=== PATIENT | female | born 1965 | race Caucasian/White ===

== ENCOUNTER 2022-10-04 09:40 | Outpatient (CLI) | payer BC, SELFPAY ==
--- NOTE | ~2022-10-04 | US_ITS ---
US thyroid INDICATION: Enlarged thyroid gland TECHNIQUE: Real-time sonographic images of the thyroid gland were obtained. COMPARISON: No prior studies for comparison. FINDINGS: The right thyroid lobe measures 4.5 x 2.2 x 3.2 cm. The left thyroid lobe measures 4.2 x 2 .7 x 2.1 cm. Thyroid echotexture is heterogeneous. There are multiple bilateral thyroid nodules. Ther e is increased vascularity in both lobes. Largest discrete mass in the right thyroid lobe is solid, i soechoic, wider than tall, smoothly marginated without significant echogenic foci measuring 2.5 x 2.1 x 1.7 cm, TR 3. Largest mass in the left lobe measures 2.1 x 1.8 x 1.4 cm and is slightly taller denise n wide, solid, hypoechoic, smoothly marginated without echogenic foci, TR 5. IMPRESSION: 1. Enlarged thyroid gland containing multiple bilateral masses. Bilateral dominant mass is described above both the sonographic criteria for biopsy. Ultrasound-guided bilateral fine-needle aspiration b iopsy recommended. Reviewed, dictated and finalized at location [] IMPRESSION: 1. Enlarged thyroid gland containing multiple bilateral masses. Bilateral steve nant mass is described above both the sonographic criteria for biopsy. Ultrasou nd-guided bilateral fine-needle aspiration biopsy recommended.
== END 2022-10-04 09:41 | disposition home or self-care (01) ==
PROVIDERS: PCP Family Medicine; Visit Provider Obstetrics & Gynecology
DX: E04.9 Nontoxic goiter, unspecified (principal)
CPT/HCPCS: 76536

== ENCOUNTER 2022-11-24 12:34 | Outpatient (CLI) | payer BC, SELFPAY ==
--- NOTE | ~2022-11-24 | US_ITS ---
EXAMINATION: 1. US FNA w image guidance 2. US FNA additional DATE: 11/24/2022 14:05 INDICATION: Nontoxic multinodular goiter. TECHNIQUE: The procedure and its benefits and risks were discussed with the patient. Risks specifically discusse d included bleeding. The patient verbalized understanding of the risks and agreed to proceed. The nec k was prepped and draped in the usual sterile manner. 1% lidocaine was used for local anesthesia. 6 passes were made with a 25G needle into the lesion in right thyroid lobe under ultrasound guidance. 6 passes were made with a 25-gauge needle into the lesion in left thyroid lobe under ultrasound nicholas nce. There were no immediate complications. FINDINGS: Grayscale ultrasound images demonstrate needles advanced into a 3.1 cm nodule in right thyroid lobe f or biopsy. Ultrasound images demonstrate needles advanced into a 2.0 cm nodule in left thyroid lobe. IMPRESSION: 1. Ultrasound-guided fine needle aspiration of a right thyroid nodule. 2. Ultrasound-guided fine-needle aspiration of a left thyroid nodule. Reviewed, dictated and finalized at location A. IMPRESSION: 1. Ultrasound-guided fine needle aspiration of a right thyroid nodule. 2. Ultrasound-guided fine-needle aspiration of a left thyroid nodule.
== END 2022-11-24 12:35 | disposition home or self-care (01) ==
PROVIDERS: PCP Family Medicine; Visit Provider Otolaryngology
DX: E04.2 Nontoxic multinodular goiter (principal)
CPT/HCPCS: 10005; 10006; 88173; 88305

== ENCOUNTER 2023-05-13 00:41 | Day surgery (SDC) | payer BC, SELFPAY ==
[2023-04-15 12:04] VITALS: BMI 25.0
--- NOTE | 2023-05-11 09:21 | SUR.PREOP ---
Patient called regarding upcoming procedure. Reviewed preop instructions, appointment times, and procedure prep.
[2023-05-13 06:20] VITALS: BP 121/77; PULSE 78; RESP 18; TEMP 36.4; O2SAT 100; BMI 25.7
[2023-05-13] MEDS: LACTATED RINGERS 1,000 ML 150 ML IV CONT (10:00)
--- NOTE | 2023-05-13 10:00 | PM.HPGS ---
History of Present Illness History of Present Illness Consent: Risks, benefits, and alternatives have been discussed and questions answered. Patient agrees to proceed with procedure. Chief complaint: neoplasm screening Narrative: Becka West is a 57 year old female here for screening colonoscopy, last one about 9 years ago Review of Systems Constitutional: Constitutional: Denies headache(s) and Denies weakness Eyes: Eyes: Denies blurry vision ENT: Reports Normal hearing present, Denies headache(s) and Denies neck pain Cardiovascular: Cardiovascular: Denies chest pain and Denies dyspnea Respiratory: Respiratory: Denies dyspnea Gastrointestinal: Gastrointestinal: Reports no additional gastrointestinal complaints Genitourinary: Genitourinary: Denies dysuria Musculoskeletal: Musculoskeletal: Denies neck pain Integumentary/Breasts: Skin/Breast: Denies dry skin Neurologic: Reports Normal hearing present, Denies headache(s) and Denies weakness Psychiatric: Psychiatric: Denies anxiety Endocrine: Endocrine: Denies change in body appearance Hematologic/Lymphatic: Hematologic/Lymphatic: Denies easy bleeding Allergic/Immunologic: Allergic/Immunologic: Denies urticaria PMFSH Past Medical History Medical History (Updated 05/13/23 @ 10:01 by Wilfredo Lott MD) Anemia Colon cancer screening Multiple thyroid nodules Family History Family History Mother Breast cancer Diabetes mellitus Hypertension Father Cancer Sibling Hypertension Social History Social History Social History: Caffeine-soda Smoking status: Never smoker Alcohol intake: never Substance use: never Substance use type: does not use Lack of Transportation: No Lack of Food: Never True Current Housing: I Have Housing Concerned About Future Housing: No Difficulty Paying Gas/Electric Bills: No Difficulty Paying for Meds: No Currently Unemployed: No Education: Bachelor's Degree Difficulty w/ Childcare or Family Care: No Living arrangements: alone Occupation/Education: occupation Gender identity (if verbalized by the patient): Female Spiritual care concerns: No Meds Home Medications and Allergies Home Medications Medication Instructions Recorded Confirmed Type rosuvastatin 10 mg tablet 10 mg PO DAILY 10/26/22 04/15/23 History Allergies Allergy/AdvReac Type Severity Reaction Status Date / Time Sulfa (Sulfonamide Allergy Mild Itching Verified 04/15/23 11:54 Antibiotics) sulfamethoxazole Allergy Mild Itching Verified 04/15/23 11:54 [From Bactrim] trimethoprim [From Bactrim] Allergy Mild Itching Verified 04/15/23 11:54 Vital Signs Vital Signs - 24 hr 05/13/23 06:20 Temperature 97.5 F L Pulse Rate 78 Respiratory Rate 18 Blood Pressure 121/77 Pulse Oximetry 100 Oxygen Delivery Room Air Exam Const: General: comfortable and no acute distress HENMT: Face/Nose/Sinus: Normal nares present Eyes: General: appearance normal, both eyes and all related structures Neck: Neck: no JVD Resp: Auscultation: clear to auscultation bilaterally Cardio: Rate: regular rate Rhythm: regular rhythm GI: Inspection: non-distended GI Palp: Yes Soft to palpation Skin: General skin exam: normal color Neuro: General: gait normal Speech: normal speech Extrem: General: normal to inspection Psych: Mental Status: mental status grossly normal Assessment and Plan Assessment and plan (1) Colon cancer screening: Code(s): Z12.11 - Encounter for screening for malignant neoplasm of colon Status: Acute Assessment and Plan: colonoscopy
--- NOTE | 2023-05-13 10:02 | P.PNAN_ITS ---
Anes - Initial Pre Proc Eval Procedure: Operation Date: 05/13/23 10:30 Proposed Procedures p Screening Colonoscopy - Wilfredo Lott MD Date/Time: 05/13/23 10:02 Surgeon: Wilfredo Lott MD Pre Op Diagnosis: neoplasm screening Patient Data Age: 57 Gender: F Height: 1.63 m Weight: 68 kg Last Vital Signs Temp 97.5 F L 05/13/23 06:20 Pulse 78 05/13/23 06:20 Resp 18 05/13/23 06:20 BP 121/77 05/13/23 06:20 Pulse Ox 100 05/13/23 06:20 O2 Del Method Room Air 05/13/23 06:20 Allergies Allergy/AdvReac Type Severity Reaction Status Date / Time Sulfa (Sulfonamide Allergy Mild Itching Verified 04/15/23 11:54 Antibiotics) sulfamethoxazole Allergy Mild Itching Verified 04/15/23 11:54 [From Bactrim] trimethoprim [From Bactrim] Allergy Mild Itching Verified 04/15/23 11:54 Home Medications Medication Instructions Recorded Confirmed Type rosuvastatin 10 mg tablet 10 mg PO DAILY 10/26/22 04/15/23 History Patient hx anesthesia problems: none Family hx anesthesia problems: none Results Review: All pre-operative results and documents have been reviewed as part of the pre-o perative evaluation. [facility] Past Medical History Medical History (Updated 05/13/23 @ 10:01 by Wilfredo Lott MD) Anemia Colon cancer screening Multiple thyroid nodules Family History Family History Mother Breast cancer Diabetes mellitus Hypertension Father Cancer Sibling Hypertension Social History Social History Social History: Caffeine-soda Smoking status: Never smoker Alcohol intake: never Substance use: never Substance use type: does not use Lack of Transportation: No Lack of Food: Never True Current Housing: I Have Housing Concerned About Future Housing: No Difficulty Paying Gas/Electric Bills: No Difficulty Paying for Meds: No Currently Unemployed: No Education: Bachelor's Degree Difficulty w/ Childcare or Family Care: No Living arrangements: alone Occupation/Education: occupation Gender identity (if verbalized by the patient): Female Spiritual care concerns: No Anes - Eval Final PreProcedure Day of Procedure 05/13/23 10:02 Patient weight: normal Heart: regular rate and rhythm Lungs: clear to auscultation Airway: Mallampati scale class II Neurological: alert and oriented Last oral intake: >/= 8 hours ASA classification: II Emergent: no Anesthetic plan: proceed Anesthesia type and monitoring: general GIVS and standard monitoring Results Review: All pre-operative results and documents have been reviewed as part of the pre- operative evaluation. Informed Consent: The patient's anesthetic plan and its attendant risks and benefits were discussed with the patient/family/POA. Questions were solicited and answers provided to the satisfaction of the patient/family/POA.
[2023-05-13 10:28] VITALS: BP 94/68; PULSE 80; RESP 15; O2SAT 98
[2023-05-13 10:38] VITALS: BP 95/65; PULSE 73; RESP 15; O2SAT 99
[2023-05-13 10:48] VITALS: BP 95/74; PULSE 68; RESP 20; O2SAT 99
--- NOTE | 2023-05-13 11:00 | SUR.PHASEII ---
Patient's blood pressures running systolic in the 90's. Patient received a Liter of Lactated Ringers. Patient states her blood pressure normally runs systolic in the high 80's to 90's . Dr. Walter notified. He is okay for discharge at this time.
== END 2023-05-13 11:04 | disposition home or self-care (01) ==
PROVIDERS: PCP Emergency Medicine; Visit Provider Internal Medicine Gastroenterology
PROC: 0DJD8ZZ Inspection of Lower Intestinal Tract, Via Natural or Artificial Opening Endoscopic (ICD-10-PCS; CPT 45378; principal; 2023-05-13 10:30)
DX: Z12.11 Encounter for screening for malignant neoplasm of colon (principal); D12.2 Benign neoplasm of ascending colon; K64.8 Other hemorrhoids
CPT/HCPCS: 45385; 88305; J2704; J7120

== ENCOUNTER 2023-09-28 15:43 | Outpatient (CLI) | payer BC, SELFPAY ==
--- NOTE | ~2023-09-28 | MM_ITS ---
EXAMINATION: MM screening ning BI w robin HISTORY: Screening TECHNIQUE: Craniocaudal and mediolateral oblique 3-D tomosynthesis images were obtained and synthetic 2-D images were generated. CAD analysis was submitted and interpreted. COMPARISON: No prior mammogram is available for comparison at this institution. BREAST PARENCHYMAL COMPOSITION: Not dense: There are scattered areas of fibroglandular density. FINDINGS: There is no evidence of suspicious mass, calcification, or architectural distortion to sugg est malignancy in either breast. There has been no suspicious interval change. IMPRESSION: 1. No mammographic evidence of malignancy. 2. Recommend routine screening mammography in one year. BI-RADS Category 1: Negative Reviewed, dictated and finalized at location B.
== END 2023-09-28 15:44 ==
PROVIDERS: PCP Obstetrics & Gynecology; Visit Provider Obstetrics & Gynecology
DX: Z12.31 Encounter for screening mammogram for malignant neoplasm of breast (principal)
CPT/HCPCS: 77063; 77067

== ENCOUNTER 2024-10-03 15:18 | Outpatient (CLI) | payer BC, SELFPAY ==
--- NOTE | ~2024-10-03 | MM_ITS ---
EXAMINATION: MM screening ning BI w robin HISTORY: Screening TECHNIQUE: Craniocaudal and mediolateral oblique 3-D tomosynthesis images were obtained and synthetic 2-D images were generated. CAD analysis was submitted and interpreted. COMPARISON: 09/28/2023 BREAST PARENCHYMAL COMPOSITION: Not dense: There are scattered areas of fibroglandular density. FINDINGS: There is no evidence of suspicious mass, calcification, or architectural distortion to sugg est malignancy in either breast. There has been no suspicious interval change. IMPRESSION: 1. No mammographic evidence of malignancy. 2. Recommend routine screening mammography in one year. BI-RADS Category 1: Negative Reviewed, dictated and finalized at location A.
== END 2024-10-03 15:19 | disposition home or self-care (01) ==
PROVIDERS: PCP Obstetrics & Gynecology; Visit Provider Obstetrics & Gynecology
DX: Z12.31 Encounter for screening mammogram for malignant neoplasm of breast (principal)
CPT/HCPCS: 77063; 77067

== ENCOUNTER 2025-04-03 15:39 | Outpatient (CLI) | payer BC, SELFPAY ==
--- NOTE | ~2025-04-03 | US_ITS ---
EXAMINATION: US thyroid DATE: 04/03/2025 16:36 INDICATION: Nodule TECHNIQUE: Multiple ultrasound images of the thyroid were obtained. COMPARISON: October 04, 2022 FINDINGS: The right thyroid lobe measures 5.3 x 2.6 x 3.3 cm. The left thyroid lobe measures 5.3 x 2.4 x 2.3 cm. Multiple nodules are noted in the right lobe with the largest measuring 3.5 x 2.0 x 2.5 cm compared with 2.5 x 2.1 x 1.7 cm and TR 4 characteristics. Multiple nodules are noted in the left lobe with the largest measuring 2.1 x 1.7 x 1.7 cm, compared to 2.1 x 1.8 x 1.4 cm on the previous exam with TR 5 sonographic features. IMPRESSION: Bilateral thyroid nodules concerning for increased growth of the largest right-sided 3.5 cm nodule and more suspicious sonographic features of the left-sided 2.1 cm nodule. Both nodules should undergo FNA if not already performed. Reviewed, dictated and finalized at location A. FACTURING CLERK IMPRESSION: Bilateral thyroid nodules concerning for increased growth of the l argest right-sided 3.5 cm nodule and more suspicious sonographic features of th e left-sided 2.1 cm nodule. Both nodules should undergo FNA if not already perf ormed.
--- OUTSIDE RECORDS SUMMARY | 2025-04-03 18:04 | XMS_ITS | Clinical Summary ---
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
--- OUTSIDE RECORDS SUMMARY | 2025-04-03 18:04 | XMS_ITS | Continuity of Care Document ---
[facility] Organization [facility] Address [address] [place] [address] Assessment No assessment recorded. Plan of Treatment Reminders Order Date Submit Date Provider Last Modified By Organization Details Last Modified Time Details Appointments ANNUAL 30 2025 10:00A M NHI Chen Not available Not available Not available Lab lipid panel, serum 2024 025 EFREN Yates, [address], [place], [address], 02/27/2025 12:19:56 CBC w/ auto diff 2024 025 EFREN Yates, [address], [place], [address], 02/27/2025 12:19:57 CMP, serum or plasma 2024 025 EFREN Yates, [address], [place], [address], 02/27/2025 12:19:56 HbA1c (hemoglo bin A1c), blood 2024 025 EFREN Yates, [address], [place], [address], 02/27/2025 12:19:57 TSH, ultra-se nsitive, serum 2024 025 EFREN Yates, [address], [place], [address], 02/27/2025 12:19:56 Referral None recorded . Procedures None recorded . Surgeries None recorded . Imaging US, thyroid 2024 025 [facility] (Mammography) , [address], [place], [address], 04/01/2025 15:12:34 Medication Orders None recorded . Patient TargetsNo targets recorded. Patient Instructions Encounter Date Encounter Id Patient Instructions Last Modified By Organization Details Last Modified Time 02/26/2025 [id number] A healthy lifestyle: care instructions jreu Not available 02/26/2025 11:16:36 Reason for Referral None Reported. Results Created Date Observation Date Name Description Value Unit Range Abnormal Flag Note LastModifiedBy Organization Detail LastModifiedTime 02/27/2002/27/2025 LIPID PANEL cholesterol, total 183 mg/dL 100-19 9 Not Available [facility] ([facility]) [address] [place], [address], 02/27/2025 12:19:55 02/27/2002/27/2025 LIPID PANEL triglyceride s 103 mg/dL 0-149 Not Available [facility] ([facility]) [address] [facility], [place], [address], 02/27/2025 12:19:55 02/27/2002/27/2025 LIPID PANEL HDL cholesterol 52 mg/dL >39 Not Available [facility] ([facility]) [address] [facility], [place], [address], 02/27/2025 12:19:55 02/27/2002/27/2025 LIPID PANEL VLDL cholesterol uzma 19 mg/dL 5-40 Not Available [facility] ([facility]) [address] [facility], [place], [address], 02/27/2025 12:19:55 02/27/2002/27/2025 LIPID PANEL LDL chol calc (nih) 112 mg/dL 0-99 above high normal Not Available [facility] ([facility]) [address] [facility], [place], [address], 02/27/2025 12:19:55 02/27/2002/27/2025 CMP14 +EGFR glucose 80 mg/dL 70-99 Not Available [facility] ([facility]) [address] [facility], [place], [address], 02/27/2025 12:19:56 02/27/2002/27/2025 CMP14 +EGFR BUN 14 mg/dL 8-27 Not Available [facility] ([facility]) [address] [facility], [place], [address], 02/27/2025 12:19:56 02/27/2002/27/2025 CMP14 +EGFR creatinine 0.90 mg/dL 0.57-1 .00 Not Available [facility] ([facility]) [address] [facility], [place], [address], 02/27/2025 12:19:56 02/27/2002/27/2025 CMP14 +EGFR eGFR 73 mL/mi n/1.7 3 >59 Not Available [facility] ([facility]) [address] [facility], [place], [address], 02/27/2025 12:19:56 02/27/2002/27/2025 CMP14 +EGFR BUN/creatini ne ratio 16 12-28 Not Available [facility] ([facility]) [address] [facility], [place], [address], 02/27/2025 12:19:56 02/27/2002/27/2025 CMP14 +EGFR sodium 142 mmol/ L 134-14 4 Not Available [facility] ([facility]) [address] [facility], [place], [address], 02/27/2025 12:19:56 02/27/2002/27/2025 CMP14 +EGFR potassium 5.2 mmol/ L 3.5-5. 2 Not Available [facility] ([facility]) [address] [place], [address], 02/27/2025 12:19:56 02/27/2002/27/2025 CMP14 +EGFR chloride 105 mmol/ L 96-106 Not Available [facility] ([facility]) [address] [place], [address], 02/27/2025 12:19:56 02/27/2002/27/2025 CMP14 +EGFR carbon dioxide, total 21 mmol/ L 20-29 Not Available [facility] ([facility]) [address] [place], [address], 02/27/2025 12:19:56 02/27/2002/27/2025 CMP14 +EGFR calcium 9.8 mg/dL 8.7-10 .3 Not Available [facility] ([facility]) [address] [place], [address], 02/27/2025 12:19:56 02/27/2002/27/2025 CMP14 +EGFR protein, total 6.6 g/dL 6.0-8. 5 Not Available [facility] ([facility]) [address] [place], [address], 02/27/2025 12:19:56 02/27/2002/27/2025 CMP14 +EGFR albumin 4.3 g/dL 3.8-4. 9 Not Available [facility] ([facility]) [address] [place], [address], 02/27/2025 12:19:56 02/27/2002/27/2025 CMP14 +EGFR globulin, total 2.3 g/dL 1.5-4. 5 Not Available [facility] ([facility]) [address] [place], [address], 02/27/2025 12:19:56 02/27/20 25 02/27/2025 CMP14 +EGFR bilirubin, total 0.4 mg/dL 0.0-1. 2 Not Available [facility] ([facility]) [address] [place], [address], 02/27/2025 12:19:56 02/27/2002/27/2025 CMP14 +EGFR alkaline phosphatase 84 IU/L 49-135 Not Available [facility] ([facility]) [address] [place], [address], 02/27/2025 12:19:56 02/27/2002/27/2025 CMP14 +EGFR AST (SGOT) 22 IU/L 0-40 Not Available [facility] ([facility]) [address] [place], [address], 02/27/2025 12:19:56 02/27/2002/27/2025 CMP14 +EGFR ALT (SGPT) 24 IU/L 0-32 Not Available [facility] ([facility]) [address] [place], [address], 02/27/2025 12:19:56 02/27/2002/27/2025 TSH RFX ON ABNOR MAL TO FREE T4 TSH 1.560 uIU/m L 0.450- 4.500 Not Available [facility] ([facility]) [address] [place], [address], 02/27/2025 12:19:56 02/27/2002/27/2025 HEMOG LOBIN A1C hemoglobin A1C 5.7 % 4.8-5. 6 above high normal Predi abete s: 5.7 - 6.4 Diabe rula: >6.4 Glyce linda contr ol for adult s with diabe rula: <7.0 Not Available [facility] ([facility]) [address] [place], [address], 02/27/2025 12:19:57 02/27/20 25 02/27/2025 CBC WITH DIFFE RENTI AL/PL ATELE T WBC 4.9 x10e3 /uL 3.4-10 .8 Not Available [facility] ([facility]) [address] [facility], [place], [address], 02/27/2025 12:19:57 02/27/20 25 02/27/2025 CBC WITH DIFFE RENTI AL/PL ATELE T RBC 4.73 x10e6 /uL 3.77-5 .28 Not Available [facility] ([facility]) [address] [facility], [place], [address], 02/27/2025 12:19:57 02/27/2002/27/2025 CBC WITH DIFFE RENTI AL/PL ATELE T hemoglobin 13.3 g/dL 11.1-1 5.9 Not Available [facility] ([facility]) [address] [facility], [place], [address], 02/27/2025 12:19:57 02/27/2002/27/2025 CBC WITH DIFFE RENTI AL/PL ATELE T hematocrit 41.6 % 34.0-4 6.6 Not Available [facility] ([facility]) [address] [place], [address], 02/27/2025 12:19:57 02/27/2002/27/2025 CBC WITH DIFFE RENTI AL/PL ATELE T MCV 88 fL 79-97 Not Available [facility] ([facility]) [address] [place], [address], 02/27/2025 12:19:57 02/27/20 25 02/27/2025 CBC WITH DIFFE RENTI AL/PL ATELE T MCH 28.1 pg 26.6-3 3.0 Not Available [facility] ([facility]) [address] [place], [address], 02/27/2025 12:19:57 02/27/20 25 02/27/2025 CBC WITH DIFFE RENTI AL/PL ATELE T MCHC 32.0 g/dL 31.5-3 5.7 Not Available [facility] ([facility]) [address] [facility], [place], [address], 02/27/2025 12:19:57 02/27/2002/27/2025 CBC WITH DIFFE RENTI AL/PL ATELE T RDW 13.2 % 11.7-1 5.4 Not Available [facility] ([facility]) [address] [facility], [place], [address], 02/27/2025 12:19:57 02/27/2002/27/2025 CBC WITH DIFFE RENTI AL/PL ATELE T platelets 298 x10e3 /uL 150-45 0 Not Available [facility] ([facility]) [address] [facility], [place], [address], 02/27/2025 12:19:57 02/27/2002/27/2025 CBC WITH DIFFE RENTI AL/PL ATELE T neutrophils 55 % notest ab. Not Available [facility] ([facility]) [address] [facility], [place], [address], 02/27/2025 12:19:57 02/27/2002/27/2025 CBC WITH DIFFE RENTI AL/PL ATELE T lymphs 35 % notest ab. Not Available [facility] ([facility]) [address] [facility], [place], [address], 02/27/2025 12:19:57 02/27/2002/27/2025 CBC WITH DIFFE RENTI AL/PL ATELE T monocytes 8 % notest ab. Not Available [facility] ([facility]) [address] [facility], [place], [address], 02/27/2025 12:19:57 02/27/2012 0302/27/2025 CBC WITH DIFFE RENTI AL/PL ATELE T eos 1 % notest ab. Not Available [facility] ([facility]) [address] [place], [address], 02/27/2025 12:19:57 02/27/20 25 02/27/2025 CBC WITH DIFFE RENTI AL/PL ATELE T basos 1 % notest ab. Not Available [facility] ([facility]) [address] [place], [address], 02/27/2025 12:19:57 02/27/2002/27/2025 CBC WITH DIFFE RENTI AL/PL ATELE T neutrophils (absolute) 2.7 x10e3 /uL 1.4-7. 0 Not Available [facility] ([facility]) [address] [place], [address], 02/27/2025 12:19:57 02/27/2002/27/2025 CBC WITH DIFFE RENTI AL/PL ATELE T lymphs (absolute) 1.7 x10e3 /uL 0.7-3. 1 Not Available [facility] ([facility]) [address] [place], [address], 02/27/2025 12:19:57 02/27/20 25 02/27/2025 CBC WITH DIFFE RENTI AL/PL ATELE T monocytes(ab solute) 0.4 x10e3 /uL 0.1-0. 9 Not Available [facility] ([facility]) [address] [place], [address], 02/27/2025 12:19:57 02/27/2002/27/2025 CBC WITH DIFFE RENTI AL/PL ATELE T eos (absolute) 0.1 x10e3 /uL 0.0-0. 4 Not Available [facility] ([facility]) [address] [place], [address], 02/27/2025 12:19:57 02/27/20 25 02/27/2025 CBC WITH DIFFE RENTI AL/PL ATELE T baso (absolute) 0.0 x10e3 /uL 0.0-0. 2 Not Available [facility] ([facility]) [address] [facility], [place], [address], 02/27/2025 12:19:57 02/27/20 25 02/27/2025 CBC WITH DIFFE RENTI AL/PL ATELE T immature granulocytes 0 % notest ab. Not Available [facility] ([facility]) [address] [facility], [place], [address], 02/27/2025 12:19:57 02/27/2002/27/2025 CBC WITH DIFFE RENTI AL/PL ATELE T immature grans (abs) 0.0 x10e3 /uL 0.0-0. 1 Not Available [facility] ([facility]) [address] [facility], [place], [address], 02/27/2025 12:19:57 02/28/2010/03/2024 MAMMO , scree kim, bilat eral No observ ation record ed. [facility] [address], [place], [address], 02/27/2025 14:26:15 Result Notes None recorded. Problems Name Problem SNOMED Code Status Onset Date Resolution Date Notes Provider Name and Address Organization Details Recorded Time Hyperlip idemia 26291586 Completed 201105/25/2017 Location : None;Sev erity: Moderate ;Progres s: Stable;A dded By: Megan Reynolds; Add to Current Problems : YES Leighann varela, [place] - [facility] 8 11:32:52 Generali zed anxiety disorder 93533677 Active 2011 Shekhar Anand MD Attn: Accounting ,[address] [facility], [place], [address] , [facility] 3 09:53:09 Female urinary stress incontin ence 36934100 Completed 201203/15/2013 Location : None;Sev erity: Moderate ;Progres s: Stable;A dded By: Holly Heath i;Debora dd to Current Problems : NO Not Available [facility] 7 09:37:58 Long-ter m drug therapy Active 2013 Shekhar Anand MD Attn: Accounting ,[address] [place], [place], [address] [place] [address] , [facility] 3 09:53:14 Mixed hyperlip idemia 550729394 Active 2013 Shekhar Anand MD Attn: Accounting ,[address] [place], [place], [address] [place] [address] , [facility] 3 09:53:20 Atopic dermatit is 24279270 Active 2013 Shekhar Anand MD Attn: Accounting ,[address] [place], [place], [address] [place] [address] , [facility] 3 09:53:06 Ganglion of joint 15213013 Completed 201312/06/2013 Location : None;Sev erity: Moderate ;Progres s: Stable;A dded By: Lulu Colon;Ad d to Current Problems : NO Shekhar Anand MD Attn: Accounting ,[address] [place], [place], [address] [place] [address] , [facility] 2 16:30:23 Allergic rhinitis caused by pollen 16008281 Completed 201403/07/2015 Location : None;Sev erity: Moderate ;Progres s: Stable;A dded By: Alma Dubose;Add to Current Problems : NO Shekhar Anand MD Attn: Accounting ,[address] [place], [place], [address] [place] [address] , [facility] 2 16:30:32 Contact dermatit is due to plants, except food Completed 201512/24/2021 Location : None;Sev erity: Moderate ;Progres s: Stable;A dded By: Leighann Tarango;Add to Current Problems : YES Shekhar Anand MD Attn: Accounting ,[address] [place], [address] , [facility] 2 16:29:34 Menopaus e Completed 201601/27/2023 estimate for start of menopaus e Shekhar Anand MD Attn: Accounting ,[address] [place], [address] , [facility] 3 09:53:31 Prediabe rula 879403446 Active 2018 Shekhar Anand MD Attn: Accounting ,[address] [place], [address] , [facility] 2 16:29:45 Body mass index 25-29 - overweig ht 203224008 Active 2021 Shekhar Anand MD Attn: Accounting ,[address] [place], [address] , [facility] 2 16:29:15 Fatigue 50269933 Completed 202101/27/2023 Shekhar Anand MD Attn: Accounting ,[address] [place], [address] , [facility] 3 09:53:23 Multinod ular goiter 119721014 Active 2022 Shekhar Anand MD Attn: Accounting ,[address] [place], [address] , [facility] 3 12:00:10 Problem Notes None recorded. Procedures Surgical History Date Name Laterality Status Provider Name and Address Organization Details Recorded Time 5 lumpectomy of left breast completed Ruth Turner MA [facility] 06/13/2018 10:59:54 4 ligation of fallopian tube completed Ruth Turner MA [facility] 06/13/2018 10:59:06 Imaging Results None recorded. Procedure Notes None recorded. Medical Equipment None Reported. Allergies Allergen ID Allergen Name Allergen Category Reaction Reaction Severity Criticality Documentation Date Start Date Code Code System Note Provider Name and Address Organization Details Recorded Time 315485 sulfameth oxazole / trimethop rim medicatio n itching Not available Not available 02/25/20252014 58928 RxNorm Not Available [facility] - External Data Service - prod 5 17:08:55 21940 Substance with sulfonami de structure and antibacte rial mechanism of action (substanc e) medicatio n hives moderate Not available 04/21/20162011 17950 8003 SNOMED React ion: hives , rash; Sever ity: Moder ate; Comme nt: Aller gy Type: Adver se React ion; Not Available [facility] 7 03:48:51 Medications Name Sig Start Date Stop Date Status Note LastModified by Organization Details LastModified Time cyclobenzap rine 10 mg tablet Take 1 tablet as needed by oral route at bedtime. 05/25 completed Not Available Not Available Not Available cefuroxime axetil 250 mg tablet 05/25 completed Not Available Not Available Not Available ibuprofen 800 mg tablet 05/25 completed Not Available Not Available Not Available prednisone 20 mg tablet 3 po q day for 3 days then 2 po q day for 3 days then 1 po q day for 4 days 05/25 completed Not Available Not Available Not Available simvastatin 10 mg tablet TAKE 1 TABLET BY MOUTH EVERY NIGHT AT BEDTIME active Not Available Not Available No t Available promethazin e 6.25 mg-codeine 10 mg/5 mL syrup 2 raulito PO Q 6hrs prn cough 05/13 completed RxNor m: 76249 6;All ow Subst ituti on: True Not Available Not Available Not Available Flonase 50 mcg/actuati on nasal spray,suspe nsion 2 spray(s) in each nostril daily 05/10 completed RxNor m: 73031 3;All ow Subst ituti on: True Not Available Not Available Not Available triamcinolo ne acetonide 0.1 % topical cream use twice a day as needed for less than 2 wks 02/03 completed RxNor m: 44361 14;Al low Subst ituti on: True Not Available Not Available Not Available amoxicillin 500 mg tablet TAKE 1 TABLET BY MOUTH THREE TIMES DAILY 02/26 completed Not Available Not Available Not Available terbinafine HCl 250 mg tablet 07/07 completed Not Available Not Available Not Available triamcinolo ne acetonide 0.025 % topical cream APPLY THIN LAYER TOPICALLY TO THE AFFECTED AREA TWICE DAILY 02/26 completed Not Available Not Available Not Available hydrocodone 7.5 mg-acetamin ophen 325 mg tablet 05/25 completed Not Available Not Available Not Available simvastatin 20 mg tablet TAKE 1 TABLET BY MOUTH DAILY 01/20 completed Not Available Not Available Not Available methylpredn isolone 4 mg tablets in a dose pack FOLLOW PACKAGE DIRECTION S 02/26 completed Not Available Not Available Not Available rosuvastati n 10 mg tablet TAKE 1 TABLET BY MOUTH EVERY DAY active Not Available Not Available No t Available chlorhexidi ne gluconate 0.12 % mouthwash 05/25 completed Not Available Not Available Not Available Virtussin AC 10 mg-100 mg/5 mL oral liquid 05/25 completed Not Available Not Available Not Available Vitals Date Recorded Body height Body mass index (BMI) Body weight Oxygen saturation Heart rate Body temperature Systolic And Diastolic Provider Name and Address Organization Details Last Updated DateTime 5 160.02 cm 26.3 kg/m2 38944.0 7 g 99 % 65 /min 98 [degF] 97/68 mm[Hg] Sharona Lopez [place] [facility] 5 11:08:58 Social History Question Answer Notes LastModified by Organizat ion Details LastModified Time Tobacco Smoking Status Never Smoker Ruth Turner MA [facility], [place] - [facility] 05/25/2017 11:01:14 Do You Have An Advance Directive? No Information not available 12/24/2021 Are You Blind Or Do You Have Difficulty Seeing? No Information not available 12/24/2021 What Is Your Level Of Caffeine Consumption? Moderate Information not available 12/24/2021 Are You Deaf Or Do You Have Serious Difficulty Hearing? No Information not available 12/24/2021 What Type Of Diet Are You Following? REGULAR Information not available 12/24/2021 What Was The Date Of Your Most Recent Tobacco Screening? 02/26/2025 Information not available 02/26/2025 What Is Your Relationship Status? Single Information not available 12/24/2021 Do You Use Your Seat Belt Or Car Seat Routinely? Yes Information not available 12/24/2021 Do You Have Smoke And Carbon Monoxide Detectors In Your Home? Yes Information not available 12/24/2021 Are You Passively Exposed To Smoke? No Information no t available 12/24/2021 Sex: Unknown Functional Status Question Answer Note LastModified by Organizat ion Details LastModified Time Do you or have you ever used any other forms of tobacco or nicotine? No Information not available 07/07/2020 What is your level of alcohol consumption? None Information not available 07/07/2020 Are you currently employed? Yes Information not available 12/24/2021 Are you able to care for yourself independently? Yes Information not available 12/24/2021 What is your exercise level? Occasional Information not available 12/24/2021 Mental Status Question Answer Note LastModified by Organization D etails LastModified Time Do you feel stressed (tense, restless, nervous, or anxious, or unable to sleep at night)? [id number] Information not available 02/26/2025 Family History Relationship Description Onset Age of this Age Resolved Age Notes LastModified by Organization Details LastModified Time Mother Hyperlipidem ia [email or web address] Not available 14:26:06 Father Mesothelioma (malignant, clinical disorder) [email or web address] Not available 14:26:27 Notes:Stomach/Liver Mat GM. Medical History Condition Response High Blood Pressure Y Gynecological History Statement/Question Response Menses Monthly N If Post Menopausal, Age at Menopause 49 Obstetrics History GPAL:G 0 P 0 0 0 0 Immunizations Vaccine Type Date Status Note Provider Nam e and Address Organization Details Recorded Time Influenza, split virus, quadrivalent, preservative 8 completed MIGNON Jordan - [facility] 02/27/2018 09:13:38 Influenza, split virus, quadrivalent, preservative 9 completed Leighann Tarango [place], [place] [facility] 06/19/2019 11:00:21 Influenza, split virus, quadrivalent, preservative 0 completed Kaylenanupama Caicedos [place], [place] [facility] 01/22/2020 14:47:44 SARS-COV-2 (COVID-19) vaccine, UNSPECIFIED 1 completed Ruth Turner [place], [place] [facility] 07/07/2020 11:13:56 SARS-COV-2 (COVID-19) vaccine, UNSPECIFIED 1 completed Ruth Turner [place] [facility] 07/07/2020 11:14:34 COVID-19, mRNA, LNP-S, PF, 30 mcg/0.3 mL dose 1 completed Erika Mahmood [place], [place] [facility] 12/24/2021 16:09:09 Influenza, split virus, quadrivalent, PF 7 completed Not Available [facility] 02/26/2025 10:45:22 Influenza, split virus, quadrivalent, PF 1 completed Not Available [facility] 02/26/2025 10:45:22 COVID-19, mRNA, LNP-S, bivalent, PF, 30 mcg/0.3 mL dose 2 completed Not Available [facility] 02/26/2025 10:45:22 Influenza, split virus, quadrivalent, PF 2 completed Not Available [facility] 02/26/2025 10:45:22 Influenza, MDCK, trivalent, PF 4 completed Not Available [facility] 02/26/2025 10:45:22 COVID-19, mRNA, LNP-S, PF, martinez-sucrose, 30 mcg/0.3 mL 4 completed Not Available [facility] 02/26/2025 10:45:22 zoster recombinant 1 completed Not Available [facility] 02/26/2025 10:45:23 Tdap 2 completed Shekhar Anand MD Attn: Accounting[address] [place], [address], [place] [facility] 12/24/2021 21:29:01 Influenza, split virus, trivalent, preservative 4 completed Not Available [facility] 04/21/2016 06:03:05 Tdap 2 completed Not Available [facility] 04/21/2016 06:03:05 Influenza, split virus, trivalent, PF 5 completed Sharona Lopez [place], [place] [facility] 02/26/2025 12:37:26 Pneumococcal conjugate PCV20, polysaccharide [id number] conjugate, adjuvant, PF 5 completed Sharona Lopez MA null, [place] - [facility] 02/26/2025 12:36:55 Past Encounters Encounter ID Performer Location Encounter Start Date Encounter Closed Date Diagnosis/Indication Diagnosis SNOMED-CT Code Diagnosis ICD10 Code Diagnosis IMO Codes Diagnosis Note [id number] Lita Saravia MD [facility] [address] [place] [address] 02/26/2025 10:43:53 02/26/2025 16:15:05 General examination of patient 644485265 Z00.00 [id number] Discussed healthy lifestyle habits such as diet, exercise and sleep. Generalize d anxiety disorder 76099435 F41.1 -PHQ-9 stable-Enc ouraged the adoption of healthy lifestyle habits, including regular exercise, balanced diet, adequate sleep, and stress management techniques . These lifestyle modificati ons can complement other treatment modalities and promote overall well-being .-Encourag ed connection s with support networks, such as family, friends, or support groups. Social support can provide emotional validation , practical assistance , and a sense of belonging, which are beneficial for individual s with depression . Mixed hyperlipidemia 267 895906 E78.2 Follow a low fat and low cholestero l diet.Reduc e dietary intake of fat to less than 30% of total calories.L imit total cholestero l to less than 200mg per day.Minimi ze use of trans fatty acids.Incr ease intake of fiber, vegetables , fruits and other whole grainsPart icipate in aerobic exercise (at least 30 minutes 4 days a week).Avoi d tobacco products. Prediabetes 734774811 R7 3.03 - Please work on diet of a good spread of veggies, fruits, lean meats, and whole grains.-Av oid foods high in saturated fats and trans fats.-Also avoid cakes, cookies, and other foods high in sugar.-Try to get at least 20-30 minutes of exercise in a couple of times a week. Screening mammography 24 353428 Z12.31 [id number] -states she had MAMMO in 2024--will request records Sampling o f cervix for Papanicolaou smear [id number] Z12.4 [id number] -[facility] request [facility] from [facility] Screening for malignant neoplasm of colon [id number] Z12.11 [id number] 04/15/23-- 4 yr f/u Multinodular goiter 2375 95183 E04.2 518182 -US of thyroid showed multiple masses,Pt had a fine needle biopsy 11/24/22- which was normal.-wi ll repeat with thyroid labs and treat accordingl y Overweight [id number] E66 .3 heart healthy diet and routine exercise discussed and f/u yearly Chronic constipation 236 [id number] K59.09 414871 -Recommend to increase fiber content in diet with more fruits and vegetable. -Drink plenty of water.-Twin e medication as prescribed , if getting worse go to ER.- If no improvemen t in 1-2 weeks, return to clinic for further assessment or follow up with Gastroente rology Requires i nfluenza virus vaccination [id number] Z23 112671 Requires v accination against Streptococcus pneumoniae [id number] Z23 114549 Health Concerns Section Related Observation LastModified by Organization Detai ls LastModified Time None Recorded Concern Status LastModified by Organization Details LastModified Time None Recorded Payers Encounter Date Sequence Insurance Name Policy Number Policy Aaron Covered Member ID Aaron Member ID Guarantor Name 02/26/2025 1 [place] [id number] Becka West [id number] Becka West Notes Date Note Type Note Provider Name and Address Organization Details Recorded Time 02/26/2025 text/html Becka is here today for an annual visit. She has complaints of ongoing constipation. Otherwsie she is doing great. She is not in acute distress. Tonya Heredia, [facility] Attn: Accounting,[address] [place], [address], [place] - [facility] 02/26/2025 11:44:43 OBGyn Episode No OBEpisode recorded.
--- OUTSIDE RECORDS SUMMARY | 2025-04-03 18:04 | XMS_ITS | Clinical Summary ---
Author Organization [facility] Address [address] [place] [address] Phone Care Team Providers Care License Examiner Name Role Phone Leighann Tarango MD Primary Care Provider [phone] Allergies Active Allergy Reactions Criticality Noted Date Comments Sulfamethoxazole-Trimethoprim Itching 2014 Sulfa Antibiotics Itching 04/09/2015 Medications simvastatin (ZOCOR) 10 MG Tablet 02/05/2015 Active Family History Medical History Relation Name Comments Cancer Father mesothelioma Colon Polyps Mother Hypertension Mother Osteoarthritis Mother Colon Cancer Paternal Aunt Relation Name Status Comments Father Mother Alive Paternal Aunt Social History Tobacco Use Types Packs/Day Years Used Date Smoking Tobacco: Never Smokeless Tobacco: Never Alcohol Use Standard Drinks/Week Comments Yes 0 (1 standard drink = 0.6 oz pur e alcohol) Comments Unknown Sex and Gender Information Value Date Recorded Sex Assigned at Not on file Legal Sex Female 10:54 AM LEAD JANITOR Gender Identity Not on file Sexual Orientation Not on file 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 Not on file Not on file Not o n file Last Filed Vital Signs Vital Sign Reading Time Taken Comments Blood Pressure 102/63 04/21/2015 9:42 AM LEAD JANITOR Pulse - - Temperature 36 C (96.8 F) 04/21/2015 9:42 AM LEAD JANITOR Respiratory Rate 16 04/21/2015 9:42 AM LEAD JANITOR Oxygen Saturation 100% 04/21/2015 9:42 AM LEAD JANITOR Inhaled Oxygen Concentration - - Weight 64.9 kg (143 lb) 04/09/2015 1:00 PM LEAD JANITOR Height 162.6 cm (5' 4) 04/09/2015 1:00 PM LEAD JANITOR Body Mass Index 24.55 04/09/2015 1:00 PM LEAD JANITOR Plan of Treatment Health Maintenance Due Date Last Done Comments Hepatitis C Virus (HCV) Screening 1965 TdaP Immunization 1964 Pap Smear 1985 Cervical Cancer Screening (CCS) 1994 HPV/Cotest 1994 Cologuard 2009 Immunochemical Fecal Occult Blood 2009 Pneumococcal Immunization (5 0+ years) (1 of 1 - PCV) 2014 Zoster Immunization (1 of 2) 2014 Influenza Immunization (#1) 2024 SARS-COV-2 Immunization ( - season) 2024 Colonoscopy 04/21/2025 04/21/2015 Colorectal Cancer Screening 04/21/2025 Respiratory Syncytial Virus (RSV) Immunization (Adult) (1 - 1-dose 75+ series) 08/12/2039 Hepatitis B Immunization Aged Out No longer eligible based on patient's age to complete this topic Human Papillomavirus (HPV) Immunization Aged Out No longer eligible b ased on patient's age to complete this topic Meningococcal Immunization (ACWY) Aged Out No longer eligible based on patient's age to complete this topic Rotavirus Immunization Aged Out No lo nger eligible based on patient's age to complete this topic Insurance [employer] WAN Care Teams License Examiner Relationship Specialty Start Date End Date Leighann Tarango MD [address] [address] PCP - General 04/15/15
--- OUTSIDE RECORDS SUMMARY | 2025-04-03 18:05 | XMS_ITS | Clinical Summary ---
Author Organization [facility] Address [address] [place] [address] Care Team Providers Care Leather Skinner Name Role Phone Unavailable Primary Care Provider Unavailabl e Source Comments [facility],non-owned Affiliates and Associated Physician Practices is amultiple site organization consisting of ambulatory clinics and hospital sitesin [place] and [place]. This disclosure is being madepursuant to the Care Everywhere program and may not contain all information available regarding this patient. Last updated 18.HeartFlow Allergies Active Allergy Reactions Criticality Noted Date Comments Sulfamethoxazole W-Trimethoprim Itching 12/18 Medications * Be aware that medications may not be up to date on this document. Alwaysverify current medications with the patient. simvastatin (ZOCOR) 10 MG tablet 02/05/2015 Active TERBINAFINE EX Activ e Immunizations Immunization Administration Dates Next Due INFLUENZA VACCINE, QUADR. (F LUZONE; FLULAVAL; FLUARIX; AFLURIA QUADRIVALENT; 6MO+), 0.5 ML (IIV4) 02/06/2019,01/07/2017 Social History Tobacco Use Types Packs/Day Years Used Date Smoking Tobacco: Never Smokeless Tobacco: Never Comments No Sex and Gender Information Value Date Recorded Sex Assigned at Not on file Legal Sex Female 11:34 AM CDT Gender Identity Not on file Sexual Orientation Not on file Last Filed Vital Signs Vital Sign Reading Time Taken Comments Blood Pressure 102/70 03/23/2018 5:18 PM WELL SERVICE PUMP EQUIPMENT OPERATOR Pulse 78 03/23/2018 5:18 PM WELL SERVICE PUMP EQUIPMENT OPERATOR Temperature 37 C (98.6 F) 03/23/2018 5:18 PM WELL SERVICE PUMP EQUIPMENT OPERATOR Respiratory Rate 15 03/23/2018 5:18 PM WELL SERVICE PUMP EQUIPMENT OPERATOR Oxygen Saturation 98% 03/23/2018 5:18 PM WELL SERVICE PUMP EQUIPMENT OPERATOR Inhaled Oxygen Concentration - - Weight 65.8 kg (145 lb) 03/23/2018 5:18 PM WELL SERVICE PUMP EQUIPMENT OPERATOR Height 162.6 cm (5' 4) 03/23/2018 5:18 PM WELL SERVICE PUMP EQUIPMENT OPERATOR Body Mass Index 24.89 03/23/2018 5:18 PM WELL SERVICE PUMP EQUIPMENT OPERATOR Plan of Treatment Health Maintenance Due Date Last Done Comments COLOGUARD (AGES 45-75) - COLON CA SCREENING 1964 COLON MONITORING 1964 COLONOSCOPY - COLON CA SCREENING 1964 CT COLONOGRAPHY - COLON CA SCREENING 1964 Colorectal Cancer Screening 1964 FIT - COLON CA SCREENING 1964 FLEX SIG - COLON CA SCREENING 1964 MAMMOGRAM 1964 HIV SCREENING 08/12/1979 HEPATITIS C SCREENING 08/07/1982 DTAP/TDAP/TD VACCINES (1 - Tdap) 08/12/1983 PAP SMEAR 1985 PNEUMOCOCCAL VACCINE 50+ (1 of 1 - PCV) 2014 ZOSTER VACCINE (1 of 2) 2014 DEPRESSION SCREENING 04/18/2024 COVID-19 VACCINE (1 - season) 2024 INFLUENZA VACCINE (#1) 2024 9, 02/06/2019, 02/23/2018, Additional history exists Respiratory Syncytial Virus (RSV) Vaccine Pt: or over 60 yrs (1 - 1-dose 75+ series) 08/12/2039 HEPATITIS B VACCINE Aged Out No longe r eligible based on patient's age to complete this topic HIB VACCINE Aged Out No longer eligi ble based on patient's age to complete this topic HPV VACCINE Aged Out No longer eligi ble based on patient's age to complete this topic MENINGOCOCCAL (Group B) VACCINE SHARED DECISION-MAKING Aged Out No longer eligible based on patient's age to complete this topic MENINGOCOCCAL GROUPS A/C/Y/W VACCINE Aged Out No longer eligible based on patient's age to complete this topic Insurance [facility] SELF PAY NO INSURANCE Member Subscriber Plan / Payer (Ef fective for All Dates) Name:Becka West Member ID:Not on file Relation to Subscriber:Not on file Name:BECKA WEST Subscriber ID:Not on file Address: [address] [place] [address] Payer ID:Not on file Group ID:Not on file Type:Self Pay Address: [place], [place]
--- OUTSIDE RECORDS SUMMARY | 2025-04-03 18:05 | XMS_ITS | Patient Health Record ---
Author Organization [facility] Address [address] [place], [place] [id number] Care Team Providers Care Fire Control Mechanic Name Role Phone AIMEE Duque Unavailable [phone] Leighann Tarango Unavailable Unavailable Reason For Referral No Information Social History Social History Additional Details Category Social Info Options Details Migrated Social History Migrated Social History Smoking Status : Never used tobacco , History of tobacco use : Plan Of Treatment No Information Insurance Providers Payer Name Payer Address Payer Phone Subscriber Number Group Number Insured Name Patient Relationship to Insured Coverage Start Date Coverage End Date [employer] ([employer]) [address] [place], [place] [id number] MERLE BRISENO Self - patient is the insured
--- OUTSIDE RECORDS SUMMARY | 2025-04-03 18:05 | XMS_ITS | Clinical Summary ---
Author Organization [facility] Address [address] [place] [id number] Care Team Providers Care Commander Internal Affairs Name Role Phone Leighann Tarango MD Primary Care Provider [phone] Family History Medical History Relation Comments Breast Cancer Mother Relation Status Comments Mother Social History Tobacco Use Types Packs/Day Years Used Date Smoking Tobacco: Never Assessed Comments Unknown Sex and Gender Information Value Date Recorded Sex Assigned at Not on file Legal Sex Female 12:57 PM CDT Gender Identity Not on file Sexual Orientation Not on file Plan of Treatment Health Maintenance Due Date Last Done Comments Cervical Cancer Screening Pap Smear (Age 30 to 64) Every 3 Years 1964 Colorectal Cancer Screening Colonoscopy (10 Years) 1964 Annual Physical 08/12/1967 Hepatitis C 1982 Cervical Cancer Screening Pap with HPV Testing (Age 30 to 64) Every 5 Years 1994 Cervical Cancer Screening with HPV 1994 Pneumococcal Vaccine: 50+ Years (1 of 1 - PCV) 2014 Zoster Vaccines (1 of 2) 2014 Mammogram Screening 06/07/2024 06/07/2022, 06/01/2021, 05/30/2020, Additional history exists COVID-19 Vaccine (2024- season) 2024 03/01/2021, 06/05/2020, 05/08/2020, Additional history exists Influenza Adult (#1) 2025 01/21/2020, 02/16/2019, 02/06/2019, Additional history exists DTaP, Tdap and Td Vaccines (3 - Td or Tdap) 12/25/2031 12/24/2021, 2011 RSV Immunization or 60+ Years (1 - 1-dose 75+ series) 08/12/2039 Hepatitis A Vaccines Aged Out No long er eligible based on patient's age to complete this topic Meningococcal B Vaccine Aged Out No l onger eligible based on patient's age to complete this topic Meningococcal Vaccine Aged Out No evelyn aurelia eligible based on patient's age to complete this topic RSV Immunizations Under 20 Months Aged Out No longer eligible based on patient's age to complete this topic Procedures Procedure Name Priority Date/Time Associated Diagnosis Comments MG SCREENING W NAOMI PILAR DIGI Routine 06/07/2022 1:15 PM MUSHROOM PACKER Encounter for screening mammogram for malignant neoplasm of breast from Last 3 Months or Most Recently Relevant to Health Maintenance Results * MG SCREENING W NAOMI PILAR DIGI (06/07/2022 1:15 PM MUSHROOM PACKER) Anatomical Region Laterality Modality Breast Bilateral Mammography 06/07/2022 3:46 PM MUSHROOM PACKER Narrative 06/07/2022 3:50 PM MUSHROOM PACKER IMAGING STUDIES: MG SCREENING W NAOMI PILAR DIGI DATE: 06/07/2022 12:21 PM HISTORY: Encounter for screening mammogram for malignant neoplasm of breast 56-year-old female for screening study. History of left breast biopsy in 2005 with reported benign pathology. Mother with breast cancer at 75 years old. COMPARISON: Screening mammogram 06/01/2021, 05/30/2020, and 02/12/2019. TECHNIQUE: Bilateral digital screening mammogram with CAD. Standard CC and MLO views. 2-D imaging and 3-D tomography. DISCUSSION: Scattered fibroglandular tissue. Benign calcifications. No mammographically suspicious mass, microcalcification, or architectural distortion. No abnormality marked by CAD. IMPRESSION: 1. No mammographic evidence of malignancy. Recommend annual mammogram. 2. BI-RADS Category 2: Benign. 3. TISSUE TYPE: Category B - There are areas of scattered fibroglandular density. A) A negative report should not delay a biopsy if a dominant or clinically suspicious mass is present. B) Adenosis and dense breasts may obscure an underlying neoplasm. C) Study interpreted with computer aided detection. Ordered By: SHEKHAR BYERS Interpreted By: Jhonny Escalante, 06/07/2022 3:46 PM Shekhar Byers MD MAMMO Final Res ult from Last 3 Months or Most Recently Relevant to Health Maintenance [facility] Care Teams Commander Internal Affairs Relationship Specialty Start Date End Date Leighann Tarango MD PCP - General 12/30/15
--- OUTSIDE RECORDS SUMMARY | 2025-04-03 18:05 | XMS_ITS | Data Portability ---
[facility] Address [address] [place] [address] Assessment Encounter Date Assessment Date Assessment LastModified by Organization Details LastModified Time 02/27/2024 02/27/2024 Pt to follow up in 1 year unless needed sooner. Will follow up on lab work when resulted. Refills given for statin. [email or web address] Not available 02/27/2024 12:46:19 Plan of Treatment Reminders Order Date Submit Date Provider Last Modified By Organization Details Last Modified Time Details Appointments ANNUAL 30 2025 10:00A M NHI Chen Not available Not available Not available Lab lipid panel, serum 2024 025 DRU Yates, [address], [address], [place], [address], 02/27/2025 12:19:56 CBC w/ auto diff 2024 025 DRU Yates, [address], [place], [address], 02/27/2025 12:19:57 CMP, serum or plasma 2024 025 DRU Yates, [address], [place], [address], 02/27/2025 12:19:56 HbA1c (hemog lobin A1c), blood 2024 025 DRU Yates, [address], [place], [address], 02/27/2025 12:19:57 TSH, ultra- sensit jony, serum 2024 025 [facility], [address], [place], [address], 02/27/2025 12:19:56 lipid panel, serum 2023 024 [facility], [address], [place], [address], 03/01/2024 03:09:32 CMP, serum or plasma 2023 024 [facility] GL[facility], [address], [place], [address], 03/01/2024 03:09:33 CBC w/ auto diff 2023 024 [facility] GL[facility], [address], [place], [address], 03/01/2024 03:09:37 HbA1c (hemog lobin A1c), blood [address] [facility], [address], [place], [address], 03/01/2024 03:09:36 TSH, ultra- sensit jony, serum 2023 024 [facility], [address], [place], [address], 03/01/2024 03:09:35 HbA1c (hemog lobin A1c), blood 2022 023 [facility], [address], [place], [address], 02/03/2023 09:22:46 CMP, serum or plasma [address] [facility], [address], [place], [address], 02/03/2023 07:16:[address] [facility], [address], [place], [address], 02/03/2023 07:16:47 lipid panel, serum [address] [facility], [address], [place], [address], 02/03/2023 07:16:46 TSH, ultra- sensit jony, serum [address] [facility], [address], [place], [address], 02/03/2023 09:22:45 vitami n D, 25-hyd lalo, total, serum 2021 022 [facility] GL[facility], [address], [place], [address], 01/07/2022 06:13:01 HbA1c (hemog lobin A1c), blood [address] [facility], [address], [place], [address], 01/07/2022 06:13:00 CMP, serum or plasma 2021 022 [facility] GL[facility], [address], [place], [address], 01/07/2022 06:12:[address] [facility], [address], [place], [address], 01/07/2022 06:13:00 lipid panel, serum 2021 022 [facility], [address], [place], [address], 01/07/2022 06:12:58 TSH, ultra- sensit jony, serum 2021 022 DR[facility], [address], [place], [address], 01/07/2022 06:12:59 lipid panel, serum 2020 021 DRU Not available 07/08/2020 12:57:43 AST/SG OT (aspar singleton aminot ransfe rase), serum or plasma 2020 021 DRU Not available 07/08/2020 14:12:12 BMP, serum or plasma 2020 DRU Not available 07/08/2020 12:57:43 Referral gastro entero logist referr al - Please contac t patien t for appt, thanks ! 2022 023 [email or web address] Dominick Valle MD, [address], [address], [place], [address], 04/19/2023 17:54:38 Procedures None record ed. Surgeries None record ed. Imaging US, thyroi d 2024 025 [facility] (Mamm[facility]) , [address], [place], [address], 04/01/2025 15:12:34 MAMMO, screen ing, bilate ral - lumpec pete 20 years ago-le ft breast 2023 024 [facility] ([facility]) , [address], [place], [address], 08/13/2024 13:57:34 Medication Orders rosuva statin 10 mg tablet 2023 024 [id number], [address], [place], [place], [id number], 02/27/2024 12:00:48 rosuva statin 10 mg tablet 2022 023 DRU [facility][id number], [address], [place], [place], [id number], 01/27/2023 12:25:58 rosuva statin 10 mg tablet 2021 022 [email or web address] [facility] #76776, [address], [place], [place], [id number], 12/24/2021 17:03:04 triamc inolon e aceton callum 0.025 % topica l cream 2021 022 [email or web address] [facility][id number], [address] [place], [id number], 02/27/2024 11:40:33 simvas tatin 20 mg tablet 2020 021 [email or web address] [facility] #[id number], [address] , [place], [place], [id number], 01/20/2021 13:33:36 Patient TargetsNo targets recorded. Patient Instructions Encounter Date Encounter Id Patient Instructions Last Modified By Organization Details Last Modified Time 12/24/2021 [id number] tetanus and diphtheria booster: care instructions Not available 12/24/2021 17:03:04 learning about healthy weight [email or web address] Not available 12/24/2021 17:03:04 Becka, Thank you for your visit Continue your current medications Have your labwork done at your earliest convenience Your lab results will be available on the portal with any recommendations, or we will call you with them Call with any concerns Preventive immunization against tetanus, diphtheria and pertussis is recommended every 10 years, or after 7 years if sustaining a tetanus-prone wound. Preventive immunization against shingles (herpes zoster) is recommended to reduce risk of occurrence, possible chronic pain, and transmission. Currently this is a two shot regimen. Yearly influenza immunization is recommended, and typically available beginning in mid-December. I highly encourage all who are able to complete an initial immunization series against COVID19, along with boosters as indicated by age or medical history. [email or web address] Not available 12/24/2021 16:54:32 01/27/2023 [id number] anxiety disorder : care instructions [email or web address] Not available 01/27/2023 12:24:46 learning about healthy weight [email or web address] Not available 01/27/2023 12:24:46 Becka, - Thank you for your visit - Continue your current medications - Have your labwork done at your earliest convenience - Your results will be available on the portal with any recommendations, or we will call you with them - Return to clinic in one year, AND as needed. - Call with any concerns Immunization recommendations: Preventive immunization against tetanus, diphtheria and pertussis is recommended every 10 years, or after 7 years if sustaining a tetanus-prone wound. Preventive immunization against shingles (herpes zoster) is recommended to reduce risk of occurrence, possible chronic pain, and transmission. Currently this is a two shot regimen. All individuals age 65 and up are encouraged to obtain vaccination against Pneumococcal pneumonia. Currently, this is a single immunization, [email or web address], if you have never previously been immunized. Yearly influenza immunization is recommended, and typically available beginning in mid-December. I highly encourage all who are able to complete an initial immunization series against COVID19, along with boosters as indicated by age or medical history. Consider obtaining an RSV immunization. For more information: https://www.cdc.g ov/vaccines/vpd/r sv/index.html Exercise recommendations: It is recommended that you do daily aerobic (walking, bicycling, swimming) and resistance exercises (light weight lifting, resistance band stretching) for at least 30 minutes, most days of the week. If you cannot walk, chair exercises for 10-15 minutes a day would help tremendously. As little as 15-20 minutes exercise, in one or two sessions a day, is still very helpful to manage/improve your weight and overall health Diet recommendations: Eat small portion meals, trying not to consume more than 1800 calories a day. Try to eat not more than 2 servings of carbs (starches) with your meals. Avoid soft drinks, including regular sodas, fruit juices, and sweetened tea. Drink water instead. Eat plenty of green and leafy vegetables, including salads. [email or web address] Not available 01/27/2023 12:25:29 02/26/2025 [id number] A healthy lifestyle: care instructions [email or web address] Not available 02/26/2025 11:16:36 Reason for Referral [employer] Referral for Screening for malignant neoplasm of colon screening colonoscopy Please contact patient for appt, thanks! Referring Physician: Shekhar Anand, Family Medicine, Encounter Date: 01/27/2023 Results Created Date Observation Date Name Description Value Unit Range Abnormal Flag Note LastModifiedBy Organization Detail LastModifiedTime 01/07/20 22 01/07/2022 LIPID PROFI LE cholesterol, total 193 mg/dL 100-19 9 Not Available [facility] ([facility]) [address] [place], [address], 01/07/2022 06:12:58 01/07/20 22 01/07/2022 LIPID PROFI LE triglyceride s 87 mg/dL 0-149 Not Available [facility] ([facility]) [address] [place], [address], 01/07/2022 06:12:58 01/07/20 22 01/07/2022 LIPID PROFI LE HDL cholesterol 53 mg/dL >39 Not Available [facility] ([facility]) [address] [place], [address], 01/07/2022 06:12:58 01/07/20 22 01/07/2022 LIPID PROFI LE VLDL cholesterol uzma 16 mg/dL 5-40 Not Available [facility] ([facility]) [address] [place], [address], 01/07/2022 06:12:58 01/07/20 22 01/07/2022 LIPID PROFI LE LDL chol calc ([facility]) 124 mg/dL 0-99 above high normal Not Available [facility] ([facility]) [address] [place], [address], 01/07/2022 06:12:58 01/07/20 22 01/07/2022 COMP. METAB OLIC PANEL (14) glucose 102 mg/dL 65-99 above high normal Eff ectiv e Septe mber 2021 Gluco se refer ence* * inter krystyna will be patiño ing to: 70 - 99 Not Available [facility] ([facility]) [address] [place], [address], 01/07/2022 06:12:59 01/07/20 22 01/07/2022 COMP. METAB OLIC PANEL (14) BUN 18 mg/dL 6-24 Not Available [facility] ([facility]) [address] [place], [address], 01/07/2022 06:12:59 01/07/20 22 01/07/2022 COMP. METAB OLIC PANEL (14) creatinine 1.09 mg/dL 0.57-1 .00 above high normal Not Available [facility] ([facility]) [address] [place], [address], 01/07/2022 06:12:59 01/07/20 22 01/07/2022 COMP. METAB OLIC PANEL (14) eGFR 59 mL/mi n/1.7 3 >59 below low normal Not Available [facility] ([facility]) [address] [place], [address], 01/07/2022 06:12:59 01/07/20 22 01/07/2022 COMP. METAB OLIC PANEL (14) BUN/creatini ne ratio 17 9-23 Not Available [facility] ([facility]) [address] [place], [address], 01/07/2022 06:12:59 01/07/20 22 01/07/2022 COMP. METAB OLIC PANEL (14) sodium 142 mmol/ L 134-14 4 Not Available [facility] ([facility]) [address] [facility] [place], [address], 01/07/2022 06:12:59 01/07/20 22 01/07/2022 COMP. METAB OLIC PANEL (14) potassium 5.1 mmol/ L 3.5-5. 2 Not Available [facility] ([facility]) [address] [place] [place], [address], 01/07/2022 06:12:59 01/07/20 22 01/07/2022 COMP. METAB OLIC PANEL (14) chloride 105 mmol/ L 96-106 Not Available [facility] ([facility]) [address] [place], [address], 01/07/2022 06:12:59 01/07/20 22 01/07/2022 COMP. METAB OLIC PANEL (14) carbon dioxide, total 21 mmol/ L 20-29 Not Available [facility] ([facility]) [address] [place] [place], [address], 01/07/2022 06:12:59 01/07/20 22 01/07/2022 COMP. METAB OLIC PANEL (14) calcium 9.8 mg/dL 8.7-10 .2 Not Available [facility] ([facility]) [address] [place], [address], 01/07/2022 06:12:59 01/07/20 22 01/07/2022 COMP. METAB OLIC PANEL (14) protein, total 6.5 g/dL 6.0-8. 5 Not Available [facility] ([facility]) [address] [place] [place], [address], 01/07/2022 06:12:59 01/07/20 22 01/07/2022 COMP. METAB OLIC PANEL (14) albumin 4.2 g/dL 3.8-4. 9 Not Available [facility] ([facility]) [address] [place], [address], 01/07/2022 06:12:59 01/07/20 22 01/07/2022 COMP. METAB OLIC PANEL (14) globulin, total 2.3 g/dL 1.5-4. 5 Not Available [facility] ([facility]) [address] [place], [address], 01/07/2022 06:12:59 01/07/20 22 01/07/2022 COMP. METAB OLIC PANEL (14) A/G ratio 1.8 1.2-2. 2 Not Available [facility] ([facility]) [address] [place], [address], 01/07/2022 06:12:59 01/07/20 22 01/07/2022 COMP. METAB OLIC PANEL (14) bilirubin, total 0.3 mg/dL 0.0-1. 2 Not Available [facility] ([facility]) [address] [place], [address], 01/07/2022 06:12:59 01/07/20 22 01/07/2022 COMP. METAB OLIC PANEL (14) alkaline phosphatase 96 IU/L 44-121 Not Available [facility] ([facility]) [address] [place], [address], 01/07/2022 06:12:59 01/07/20 22 01/07/2022 COMP. METAB OLIC PANEL (14) AST (SGOT) 25 IU/L 0-40 Not Available [facility] ([facility]) [address] [place], [address], 01/07/2022 06:12:59 01/07/20 22 01/07/2022 COMP. METAB OLIC PANEL (14) ALT (SGPT) 37 IU/L 0-32 above high normal Not Available [facility] ([facility]) [address] [place], [address], 01/07/2022 06:12:59 01/07/20 22 01/07/2022 TSH RFX ON ABNOR MAL TO FREE T4 TSH 3.000 uIU/m L 0.450- 4.500 Not Available [facility] ([facility]) [address] [place], [address], 01/07/2022 06:12:59 01/07/20 22 01/07/2022 HEMOG LOBIN A1C hemoglobin A1C 5.9 % 4.8-5. 6 above high normal Predi abete s: 5.7 - 6.4 Diabe rula: >6.4 Glyce linda contr ol for adult s with diabe rlua: <7.0 Not Available [facility] ([facility]) [address] [place], [address], 01/07/2022 06:13:00 01/07/20 22 01/07/2022 CBC, PLATE LET, NO DIFFE RENTI AL WBC 5.1 x10e3 /uL 3.4-10 .8 Not Available [facility] ([facility]) [address] [place], [address], 01/07/2022 06:13:00 01/07/2001/07/2022 CBC, PLATE LET, NO DIFFE RENTI AL RBC 4.59 x10e6 /uL 3.77-5 .28 Not Available [facility] ([facility]) [address] [place], [address], 01/07/2022 06:13:00 01/07/2001/07/2022 CBC, PLATE LET, NO DIFFE RENTI AL hemoglobin 12.7 g/dL 11.1-1 5.9 Not Available [facility] ([facility]) [address] [place], [address], 01/07/2022 06:13:00 01/07/2001/07/2022 CBC, PLATE LET, NO DIFFE RENTI AL hematocrit 39.5 % 34.0-4 6.6 Not Available [facility] ([facility]) [address] [facility], [place], [address], 01/07/2022 06:13:00 01/07/2001/07/2022 CBC, PLATE LET, NO DIFFE RENTI AL MCV 86 fL 79-97 Not Available [facility] ([facility]) [address] [facility], [place], [address], 01/07/2022 06:13:00 01/07/2001/07/2022 CBC, PLATE LET, NO DIFFE RENTI AL MCH 27.7 pg 26.6-3 3.0 Not Available [facility] ([facility]) [address] [facility], [place], [address], 01/07/2022 06:13:00 01/07/2001/07/2022 CBC, PLATE LET, NO DIFFE RENTI AL MCHC 32.2 g/dL 31.5-3 5.7 Not Available [facility] ([facility]) [address] [place], [address], 01/07/2022 06:13:00 01/07/2001/07/2022 CBC, PLATE LET, NO DIFFE RENTI AL RDW 13.0 % 11.7-1 5.4 Not Available [facility] ([facility]) [address] [place], [address], 01/07/2022 06:13:00 01/07/2001/07/2022 CBC, PLATE LET, NO DIFFE RENTI AL platelets 313 x10e3 /uL 150-45 0 Not Available [facility] ([facility]) [address] [place], [address], 01/07/2022 06:13:00 01/07/2001/07/2022 VITAM IN D, 25-HY DROXY vitamin D, 25-hydroxy 38.4 NG/mL 30.0-1 00.0 Vitam in D defic iency has been defin ed by the Insti tute of Medic ine and an Endoc rine Socie ty pract ice guide line as a level of serum 25-OH vitam in D less than 20 ng/mL (1,2) . The Endoc rine Socie ty went on to furth er defin e vitam in D insuf ficie ncy as a level betwe en 21 and 29 ng/mL (2). 1. IOM (Inst itute of Medic ine). 2010. Merry ry refer ence ganesh es for calci um and D. Fabi hobbs [place]: [facility] . 2. Zofia estevez MF, Emperatriz jackman [place], Randall off-F errar i CARBERA, et al. Evalu ation , treat ment, and preve ntion of vitam in D defic iency : an Endoc rine Socie ty clini uzma pract ice guide line. JCEM. 2010; 96(7) :1911 -30. Not Available [facility] ([place] [facility]) [address] [place], [address], 01/07/2022 06:13:01 08/05/19 23 08/05/2022 COMP. METAB OLIC PANEL (14) glucose 96 mg/dL 70-99 Not Available [facility] ([place] [facility]) [address] [place], [address], 08/05/2022 03:08:26 08/05/19 23 08/05/2022 COMP. METAB OLIC PANEL (14) BUN 16 mg/dL 6-24 Not Available [facility] ([place] [facility]) [address] [place], [address], 08/05/2022 03:08:26 08/05/19 23 08/05/2022 COMP. METAB OLIC PANEL (14) creatinine 0.95 mg/dL 0.57-1 .00 Not Available [facility] ([facility]) [address], [place], [address], 08/05/2022 03:08:26 08/05/19 23 08/05/2022 COMP. METAB OLIC PANEL (14) eGFR 70 mL/mi n/1.7 3 >59 Not Available [facility] ([facility]) [address], [place], [address], 08/05/2022 03:08:26 08/05/19 23 08/05/2022 COMP. METAB OLIC PANEL (14) BUN/creatini ne ratio 17 9-23 Not Available [facility] ([facility]) [address] [facility], [place], [address], 08/05/2022 03:08:26 08/05/19 23 08/05/2022 COMP. METAB OLIC PANEL (14) sodium 142 mmol/ L 134-14 4 Not Available [facility] ([facility]) [address] [facility], [place], [address], 08/05/2022 03:08:26 08/05/19 23 08/05/2022 COMP. METAB OLIC PANEL (14) potassium 4.9 mmol/ L 3.5-5. 2 Not Available [facility] ([facility]) [address] [facility], [place], [address], 08/05/2022 03:08:26 08/05/19 23 08/05/2022 COMP. METAB OLIC PANEL (14) chloride 106 mmol/ L 96-106 Not Available [facility] ([facility]) [address] [facility], [place], [address], 08/05/2022 03:08:26 08/05/19 23 08/05/2022 COMP. METAB OLIC PANEL (14) carbon dioxide, total 23 mmol/ L 20-29 Not Available [facility] ([facility]) [address] [facility], [place], [address], 08/05/2022 03:08:26 08/05/19 23 08/05/2022 COMP. METAB OLIC PANEL (14) calcium 9.7 mg/dL 8.7-10 .2 Not Available [facility] ([facility]) [address] [place] [place], [address], 08/05/2022 03:08:26 08/05/19 23 08/05/2022 COMP. METAB OLIC PANEL (14) protein, total 6.3 g/dL 6.0-8. 5 Not Available [facility] ([facility]) [address] [facility], [place], [address], 08/05/2022 03:08:26 08/05/19 23 08/05/2022 COMP. METAB OLIC PANEL (14) albumin 4.2 g/dL 3.8-4. 9 Not Available [facility] ([facility]) [address] [facility], [place], [address], 08/05/2022 03:08:26 08/05/19 23 08/05/2022 COMP. METAB OLIC PANEL (14) globulin, total 2.1 g/dL 1.5-4. 5 Not Available [facility] ([facility]) [address] [place], [address], 08/05/2022 03:08:26 08/05/19 23 08/05/2022 COMP. METAB OLIC PANEL (14) A/G ratio 2.0 1.2-2. 2 Not Available [facility] ([facility]) [address] [place] [place], [address], 08/05/2022 03:08:26 08/05/19 23 08/05/2022 COMP. METAB OLIC PANEL (14) bilirubin, total 0.3 mg/dL 0.0-1. 2 Not Available [facility] ([facility]) [address] [place], [address], 08/05/2022 03:08:26 08/05/19 23 08/05/2022 COMP. METAB OLIC PANEL (14) alkaline phosphatase 88 IU/L 44-121 Not Available [facility] ([facility]) [address] [place], [address], 08/05/2022 03:08:26 08/05/19 23 08/05/2022 COMP. METAB OLIC PANEL (14) AST (SGOT) 25 IU/L 0-40 Not Available [facility] ([facility]) [address] [place], [address], 08/05/2022 03:08:26 08/05/19 23 08/05/2022 COMP. METAB OLIC PANEL (14) ALT (SGPT) 34 IU/L 0-32 above high normal Not Available [facility] ([facility]) [address] [place], [address], 08/05/2022 03:08:26 02/03/20 23 02/03/2023 LIPID PANEL cholesterol, total 189 mg/dL 100-19 9 Not Available [facility] ([facility]) [address] [place], [address], 02/03/2023 07:16:46 02/03/20 23 02/03/2023 LIPID PANEL triglyceride s 75 mg/dL 0-149 Not Available [facility] ([facility]) [address] [place], [address], 02/03/2023 07:16:46 02/03/20 23 02/03/2023 LIPID PANEL HDL cholesterol 56 mg/dL >39 Not Available [facility] ([facility]) [address] [place], [address], 02/03/2023 07:16:46 02/03/20 23 02/03/2023 LIPID PANEL VLDL cholesterol uzma 14 mg/dL 5-40 Not Available [facility] ([facility]) [address] [place], [address], 02/03/2023 07:16:46 02/03/20 23 02/03/2023 LIPID PANEL LDL chol calc ([facility]) 119 mg/dL 0-99 above high normal Not Available [facility] ([facility]) [address] [facility], [place], [address], 02/03/2023 07:16:46 02/03/20 23 02/03/2023 COMP. METAB OLIC PANEL (14) glucose 97 mg/dL 70-99 Not Available [facility] ([facility]) [address] [place], [address], 02/03/2023 07:16:46 02/03/2002/03/2023 COMP. METAB OLIC PANEL (14) BUN 12 mg/dL 6-24 Not Available [facility] ([facility]) [address] [place], [address], 02/03/2023 07:16:46 02/03/2002/03/2023 COMP. METAB OLIC PANEL (14) creatinine 0.95 mg/dL 0.57-1 .00 Not Available [facility] ([facility]) [address] [place], [address], 02/03/2023 07:16:46 02/03/20 23 02/03/2023 COMP. METAB OLIC PANEL (14) eGFR 69 mL/mi n/1.7 3 >59 Not Available [facility] ([facility]) [address] [place], [address], 02/03/2023 07:16:46 02/03/20 23 02/03/2023 COMP. METAB OLIC PANEL (14) BUN/creatini ne ratio 13 9-23 Not Available [facility] ([facility]) [address] [place], [address], 02/03/2023 07:16:46 02/03/20 23 02/03/2023 COMP. METAB OLIC PANEL (14) sodium 142 mmol/ L 134-14 4 Not Available [facility] ([facility]) [address] [place], [address], 02/03/2023 07:16:46 02/03/20 23 02/03/2023 COMP. METAB OLIC PANEL (14) potassium 4.8 mmol/ L 3.5-5. 2 Not Available [facility] ([facility]) [address] [place] [place], [address], 02/03/2023 07:16:46 02/03/20 23 02/03/2023 COMP. METAB OLIC PANEL (14) chloride 106 mmol/ L 96-106 Not Available [facility] ([facility]) [address] [facility], [place], [address], 02/03/2023 07:16:46 02/03/20 23 02/03/2023 COMP. METAB OLIC PANEL (14) carbon dioxide, total 23 mmol/ L 20-29 Not Available [facility] ([facility]) [address] [place] [place], [address], 02/03/2023 07:16:46 02/03/20 23 02/03/2023 COMP. METAB OLIC PANEL (14) calcium 9.8 mg/dL 8.7-10 .2 Not Available [facility] ([facility]) [address] [place], [address], 02/03/2023 07:16:46 02/03/20 23 02/03/2023 COMP. METAB OLIC PANEL (14) protein, total 6.5 g/dL 6.0-8. 5 Not Available [facility] ([facility]) [address] [place], [address], 02/03/2023 07:16:46 02/03/20 23 02/03/2023 COMP. METAB OLIC PANEL (14) albumin 4.5 g/dL 3.8-4. 9 Not Available [facility] ([facility]) [address] [facility] [place], [address], 02/03/2023 07:16:46 02/03/2002/03/2023 COMP. METAB OLIC PANEL (14) globulin, total 2.0 g/dL 1.5-4. 5 Not Available [facility] ([facility]) [address] [facility] [place], [address], 02/03/2023 07:16:46 02/03/2002/03/2023 COMP. METAB OLIC PANEL (14) A/G ratio 2.3 1.2-2. 2 above high normal Not Available [facility] ([facility]) [address] [place], [address], 02/03/2023 07:16:46 02/03/20 23 02/03/2023 COMP. METAB OLIC PANEL (14) bilirubin, total 0.3 mg/dL 0.0-1. 2 Not Available [facility] ([facility]) [address] [place], [address], 02/03/2023 07:16:46 02/03/20 23 02/03/2023 COMP. METAB OLIC PANEL (14) alkaline phosphatase 83 IU/L 44-121 Not Available [facility] ([facility]) [address] [place], [address], 02/03/2023 07:16:46 02/03/2002/03/2023 COMP. METAB OLIC PANEL (14) AST (SGOT) 20 IU/L 0-40 Not Available [facility] ([facility]) [address] [place], [address], 02/03/2023 07:16:46 02/03/20 23 02/03/2023 COMP. METAB OLIC PANEL (14) ALT (SGPT) 25 IU/L 0-32 Not Available [facility] ([facility]) [address] [place], [address], 02/03/2023 07:16:46 02/03/2002/03/2023 CBC, PLATE LET, NO DIFFE RENTI AL WBC 4.5 x10e3 /uL 3.4-10 .8 Not Available [facility] ([facility]) [address] [facility], [place], [address], 02/03/2023 07:16:47 02/03/2002/03/2023 CBC, PLATE LET, NO DIFFE RENTI AL RBC 4.50 x10e6 /uL 3.77-5 .28 Not Available [facility] ([facility]) [address] [facility], [place], [address], 02/03/2023 07:16:47 02/03/2002/03/2023 CBC, PLATE LET, NO DIFFE RENTI AL hemoglobin 12.7 g/dL 11.1-1 5.9 Not Available [facility] ([facility]) [address] [facility], [place], [address], 02/03/2023 07:16:47 02/03/2002/03/2023 CBC, PLATE LET, NO DIFFE RENTI AL hematocrit 39.7 % 34.0-4 6.6 Not Available [facility] ([facility]) [address] [facility], [place], [address], 02/03/2023 07:16:47 02/03/2002/03/2023 CBC, PLATE LET, NO DIFFE RENTI AL MCV 88 fL 79-97 Not Available [facility] ([facility]) [address] [facility], [place], [address], 02/03/2023 07:16:47 02/03/2002/03/2023 CBC, PLATE LET, NO DIFFE RENTI AL MCH 28.2 pg 26.6-3 3.0 Not Available [facility] ([facility]) [address] [facility], [place], [address], 02/03/2023 07:16:47 02/03/2002/03/2023 CBC, PLATE LET, NO DIFFE RENTI AL MCHC 32.0 g/dL 31.5-3 5.7 Not Available [facility] ([facility]) [address] [facility], [place], [address], 02/03/2023 07:16:47 02/03/2002/03/2023 CBC, PLATE LET, NO DIFFE RENTI AL RDW 13.0 % 11.7-1 5.4 Not Available [facility] ([facility]) [address] [place], [address], 02/03/2023 07:16:47 02/03/2002/03/2023 CBC, PLATE LET, NO DIFFE RENTI AL platelets 264 x10e3 /uL 150-45 0 Not Available [facility] ([facility]) [address] [facility], [place], [address], 02/03/2023 07:16:47 02/03/2002/03/2023 TSH RFX ON ABNOR MAL TO FREE T4 TSH 1.440 uIU/m L 0.450- 4.500 Not Available [facility] ([facility]) [address] [facility], [place], [address], 02/03/2023 09:22:45 02/03/2002/03/2023 HEMOG LOBIN A1C hemoglobin A1C 5.9 % 4.8-5. 6 above high normal Predi abete s: 5.7 - 6.4 Diabe rula: >6.4 Glyce linda contr ol for adult s with diabe rula: <7.0 Not Available [facility] ([facility]) [address] [place], [address], 02/03/2023 09:22:46 02/29/20 24 03/01/2024 LIPID PANEL cholesterol, total 206 mg/dL 100-19 9 above high normal Not Available [facility] ([facility]) [address] [facility], [place], [address], 03/01/2024 03:09:32 02/29/20 24 03/01/2024 LIPID PANEL triglyceride s 92 mg/dL 0-149 Not Available [facility] ([facility]) [address] [place], [address], 03/01/2024 03:09:32 02/29/20 24 03/01/2024 LIPID PANEL HDL cholesterol 53 mg/dL >39 Not Available [facility] ([facility]) [address] [place], [address], 03/01/2024 03:09:32 02/29/20 24 03/01/2024 LIPID PANEL VLDL cholesterol uzma 17 mg/dL 5-40 Not Available [facility] ([facility]) [address] [place], [address], 03/01/2024 03:09:32 02/29/20 24 03/01/2024 LIPID PANEL LDL chol calc ([facility]) 136 mg/dL 0-99 above high normal Not Available [facility] ([facility]) [address] [facility], [place], [address], 03/01/2024 03:09:32 02/29/20 24 03/01/2024 COMP. METAB OLIC PANEL (14) glucose 94 mg/dL 70-99 Not Available [facility] ([facility]) [address] [place], [address], 03/01/2024 03:09:33 02/29/20 24 03/01/2024 COMP. METAB OLIC PANEL (14) BUN 14 mg/dL 6-24 Not Available [facility] ([facility]) [address] [place], [address], 03/01/2024 03:09:33 02/29/20 24 03/01/2024 COMP. METAB OLIC PANEL (14) creatinine 0.98 mg/dL 0.57-1 .00 Not Available [facility] ([facility]) [address] [place], [address], 03/01/2024 03:09:33 02/29/20 24 03/01/2024 COMP. METAB OLIC PANEL (14) eGFR 66 mL/mi n/1.7 3 >59 Not Available [facility] ([facility]) [address] [place], [address], 03/01/2024 03:09:33 02/29/20 24 03/01/2024 COMP. METAB OLIC PANEL (14) BUN/creatini ne ratio 14 9-23 Not Available [facility] ([facility]) [address] [place], [address], 03/01/2024 03:09:33 02/29/20 24 03/01/2024 COMP. METAB OLIC PANEL (14) sodium 142 mmol/ L 134-14 4 Not Available [facility] ([facility]) [address] [place], [address], 03/01/2024 03:09:33 02/29/20 24 03/01/2024 COMP. METAB OLIC PANEL (14) potassium 4.9 mmol/ L 3.5-5. 2 Not Available [facility] ([facility]) [address] [place], [address], 03/01/2024 03:09:33 02/29/20 24 03/01/2024 COMP. METAB OLIC PANEL (14) chloride 106 mmol/ L 96-106 Not Available [facility] ([facility]) [address] [place], [address], 03/01/2024 03:09:33 02/29/20 24 03/01/2024 COMP. METAB OLIC PANEL (14) carbon dioxide, total 23 mmol/ L 20-29 Not Available [facility] ([facility]) [address] [facility], [place], [address], 03/01/2024 03:09:33 02/29/20 24 03/01/2024 COMP. METAB OLIC PANEL (14) calcium 10.3 mg/dL 8.7-10 .2 above high normal Not Available [facility] ([facility]) [address] [facility] [place], [address], 03/01/2024 03:09:33 02/29/20 24 03/01/2024 COMP. METAB OLIC PANEL (14) protein, total 6.6 g/dL 6.0-8. 5 Not Available [facility] ([facility]) [address] [place], [address], 03/01/2024 03:09:33 02/29/20 24 03/01/2024 COMP. METAB OLIC PANEL (14) albumin 4.3 g/dL 3.8-4. 9 Not Available [facility] ([facility]) [address] [facility], [place], [address], 03/01/2024 03:09:33 02/29/20 24 03/01/2024 COMP. METAB OLIC PANEL (14) globulin, total 2.3 g/dL 1.5-4. 5 Not Available [facility] ([facility]) [address] [place], [address], 03/01/2024 03:09:33 02/29/20 24 03/01/2024 COMP. METAB OLIC PANEL (14) bilirubin, total 0.4 mg/dL 0.0-1. 2 Not Available [facility] ([facility]) [address] [place], [address], 03/01/2024 03:09:33 02/29/20 24 03/01/2024 COMP. METAB OLIC PANEL (14) alkaline phosphatase 87 IU/L 44-121 Not Available [facility] ([facility]) [address] [place], [address], 03/01/2024 03:09:33 02/29/20 24 03/01/2024 COMP. METAB OLIC PANEL (14) AST (SGOT) 25 IU/L 0-40 Not Available [facility] ([facility]) [address] [facility], [place], [address], 03/01/2024 03:09:33 02/29/20 24 03/01/2024 COMP. METAB OLIC PANEL (14) ALT (SGPT) 28 IU/L 0-32 Not Available [facility] ([facility]) [address] [facility], [place], [address], 03/01/2024 03:09:33 02/29/20 24 03/01/2024 TSH RFX ON ABNOR MAL TO FREE T4 TSH 2.150 uIU/m L 0.450- 4.500 Not Available [facility] ([facility]) [address] [facility], [place], [address], 03/01/2024 03:09:34 02/29/20 24 03/01/2024 HEMOG LOBIN A1C hemoglobin A1C 6.2 % 4.8-5. 6 above high normal Predi abete s: 5.7 - 6.4 Diabe rula: >6.4 Glyce linda contr ol for adult s with diabe rula: <7.0 Not Available [facility] ([facility]) [address] [facility], [place], [address], 03/01/2024 03:09:36 02/29/20 24 02/29/2024 CBC WITH DIFFE RENTI AL/PL ATELE T WBC 5.1 x10e3 /uL 3.4-10 .8 Not Available [facility] ([facility]) [address] [facility], [place], [address], 03/01/2024 03:09:37 02/29/20 24 02/29/2024 CBC WITH DIFFE RENTI AL/PL ATELE T RBC 4.77 x10e6 /uL 3.77-5 .28 Not Available [facility] ([facility]) [address] [facility], [place], [address], 03/01/2024 03:09:37 02/29/20 24 02/29/2024 CBC WITH DIFFE RENTI AL/PL ATELE T hemoglobin 13.2 g/dL 11.1-1 5.9 Not Available [facility] ([facility]) [address] [facility], [place], [address], 03/01/2024 03:09:37 02/29/20 24 02/29/2024 CBC WITH DIFFE RENTI AL/PL ATELE T hematocrit 41.6 % 34.0-4 6.6 Not Available [facility] ([facility]) [address] [facility], [place], [address], 03/01/2024 03:09:37 02/29/20 24 02/29/2024 CBC WITH DIFFE RENTI AL/PL ATELE T MCV 87 fL 79-97 Not Available [facility] ([facility]) [address] [facility], [place], [address], 03/01/2024 03:09:37 02/29/20 24 02/29/2024 CBC WITH DIFFE RENTI AL/PL ATELE T MCH 27.7 pg 26.6-3 3.0 Not Available [facility] ([facility]) [address] [facility], [place], [address], 03/01/2024 03:09:37 02/29/20 24 02/29/2024 CBC WITH DIFFE RENTI AL/PL ATELE T MCHC 31.7 g/dL 31.5-3 5.7 Not Available [facility] ([facility]) [address] [facility], [place], [address], 03/01/2024 03:09:37 02/29/20 24 02/29/2024 CBC WITH DIFFE RENTI AL/PL ATELE T RDW 13.1 % 11.7-1 5.4 Not Available [facility] ([facility]) [address] [facility], [place], [address], 03/01/2024 03:09:37 02/29/20 24 02/29/2024 CBC WITH DIFFE RENTI AL/PL ATELE T platelets 293 x10e3 /uL 150-45 0 Not Available [facility] ([facility]) [address] [facility], [place], [address], 03/01/2024 03:09:37 02/29/20 24 02/29/2024 CBC WITH DIFFE RENTI AL/PL ATELE T neutrophils 57 % notest ab. Not Available [facility] ([facility]) [address] [facility], [place], [address], 03/01/2024 03:09:37 02/29/20 24 02/29/2024 CBC WITH DIFFE RENTI AL/PL ATELE T lymphs 34 % notest ab. Not Available [facility] ([facility]) [address] [facility], [place], [address], 03/01/2024 03:09:37 02/29/20 24 02/29/2024 CBC WITH DIFFE RENTI AL/PL ATELE T monocytes 7 % notest ab. Not Available [facility] ([facility]) [address] [facility], [place], [address], 03/01/2024 03:09:37 02/29/20 24 02/29/2024 CBC WITH DIFFE RENTI AL/PL ATELE T eos 1 % notest ab. Not Available [facility] ([facility]) [address] [facility], [place], [address], 03/01/2024 03:09:37 02/29/20 24 02/29/2024 CBC WITH DIFFE RENTI AL/PL ATELE T basos 1 % notest ab. Not Available [facility] ([facility]) [address] [facility], [place], [address], 03/01/2024 03:09:37 02/29/20 24 02/29/2024 CBC WITH DIFFE RENTI AL/PL ATELE T neutrophils (absolute) 2.9 x10e3 /uL 1.4-7. 0 Not Available [facility] ([facility]) [address] [facility], [place], [address], 03/01/2024 03:09:37 02/29/20 24 02/29/2024 CBC WITH DIFFE RENTI AL/PL ATELE T lymphs (absolute) 1.7 x10e3 /uL 0.7-3. 1 Not Available [facility] ([facility]) [address] [facility], [place], [address], 03/01/2024 03:09:37 02/29/20 24 02/29/2024 CBC WITH DIFFE RENTI AL/PL ATELE T monocytes(ab solute) 0.4 x10e3 /uL 0.1-0. 9 Not Available [facility] ([facility]) [address] [facility], [place], [address], 03/01/2024 03:09:37 02/29/20 24 02/29/2024 CBC WITH DIFFE RENTI AL/PL ATELE T eos (absolute) 0.1 x10e3 /uL 0.0-0. 4 Not Available [facility] ([facility]) [address] [facility], [place], [address], 03/01/2024 03:09:37 02/29/20 24 02/29/2024 CBC WITH DIFFE RENTI AL/PL ATELE T baso (absolute) 0.0 x10e3 /uL 0.0-0. 2 Not Available [facility] ([facility]) [address] [facility], [place], [address], 03/01/2024 03:09:37 02/29/20 24 02/29/2024 CBC WITH DIFFE RENTI AL/PL ATELE T immature granulocytes 0 % notest ab. Not Available [facility] ([facility]) [address] [facility], [place], [address], 03/01/2024 03:09:37 02/29/20 24 02/29/2024 CBC WITH DIFFE RENTI AL/PL ATELE T immature grans (abs) 0.0 x10e3 /uL 0.0-0. 1 Not Available [facility] ([facility]) [address] [facility], [place], [address], 03/01/2024 03:09:37 02/27/20 25 02/27/2025 LIPID PANEL cholesterol, total 183 mg/dL 100-19 9 Not Available [facility] ([facility]) [address] [facility], [place], [address], 02/27/2025 12:19:55 02/27/20 25 02/27/2025 LIPID PANEL triglyceride s 103 mg/dL 0-149 Not Available [facility] ([facility]) [address] [facility], [place], [address], 02/27/2025 12:19:55 02/27/20 25 02/27/2025 LIPID PANEL HDL cholesterol 52 mg/dL >39 Not Available [facility] ([facility]) [address] [facility], [place], [address], 02/27/2025 12:19:55 02/27/20 25 02/27/2025 LIPID PANEL VLDL cholesterol uzma 19 mg/dL 5-40 Not Available [facility] ([facility]) [address] [place], [address], 02/27/2025 12:19:55 02/27/20 25 02/27/2025 LIPID PANEL LDL chol calc ([facility]) 112 mg/dL 0-99 above high normal Not Available [facility] ([facility]) [address] [place], [address], 02/27/2025 12:19:55 02/27/20 25 02/27/2025 CMP14 +EGFR glucose 80 mg/dL 70-99 Not Available [facility] ([facility]) [address] [facility], [place], [address], 02/27/2025 12:19:56 02/27/20 25 02/27/2025 CMP14 +EGFR BUN 14 mg/dL 8-27 Not Available [facility] ([facility]) [address] [facility], [place], [address], 02/27/2025 12:19:56 02/27/20 25 02/27/2025 CMP14 +EGFR creatinine 0.90 mg/dL 0.57-1 .00 Not Available [facility] ([facility]) [address] [facility], [place], [address], 02/27/2025 12:19:56 02/27/20 25 02/27/2025 CMP14 +EGFR eGFR 73 mL/mi n/1.7 3 >59 Not Available [facility] ([facility]) [address] [facility], [place], [address], 02/27/2025 12:19:56 02/27/20 25 02/27/2025 CMP14 +EGFR BUN/creatini ne ratio 16 12-28 Not Available [facility] ([facility]) [address] [facility], [place], [address], 02/27/2025 12:19:56 02/27/2002/27/2025 CMP14 +EGFR sodium 142 mmol/ L 134-14 4 Not Available [facility] ([facility]) [address] [facility], [place], [address], 02/27/2025 12:19:56 02/27/20 25 02/27/2025 CMP14 +EGFR potassium 5.2 mmol/ L 3.5-5. 2 Not Available [facility] ([facility]) [address] [place], [address], 02/27/2025 12:19:56 02/27/2002/27/2025 CMP14 +EGFR chloride 105 mmol/ L 96-106 Not Available [facility] ([facility]) [address] [place], [address], 02/27/2025 12:19:56 02/27/2002/27/2025 CMP14 +EGFR carbon dioxide, total 21 mmol/ L 20-29 Not Available [facility] ([facility]) [address] [place], [address], 02/27/2025 12:19:56 02/27/2002/27/2025 CMP14 +EGFR calcium 9.8 mg/dL 8.7-10 .3 Not Available [facility] ([facility]) [address] [place], [address], 02/27/2025 12:19:56 02/27/2002/27/2025 CMP14 +EGFR protein, total 6.6 g/dL 6.0-8. 5 Not Available [facility] ([facility]) [address] [place], [address], 02/27/2025 12:19:56 02/27/2002/27/2025 CMP14 +EGFR albumin 4.3 g/dL 3.8-4. 9 Not Available [facility] ([facility]) [address] [place], [address], 02/27/2025 12:19:56 02/27/2002/27/2025 CMP14 +EGFR globulin, total 2.3 g/dL 1.5-4. 5 Not Available [facility] ([facility]) [address] [place], [address], 02/27/2025 12:19:56 02/27/2002/27/2025 CMP14 +EGFR bilirubin, total 0.4 mg/dL 0.0-1. 2 Not Available [facility] ([facility]) [address] [place], [address], 02/27/2025 12:19:56 02/27/2002/27/2025 CMP14 +EGFR alkaline phosphatase 84 IU/L 49-135 Not Available [facility] ([facility]) [address] [facility], [place], [address], 02/27/2025 12:19:56 02/27/2002/27/2025 CMP14 +EGFR AST (SGOT) 22 IU/L 0-40 Not Available [facility] ([facility]) [address] [place], [address], 02/27/2025 12:19:56 02/27/2002/27/2025 CMP14 +EGFR ALT (SGPT) 24 IU/L 0-32 Not Available [facility] ([facility]) [address] [place], [address], 02/27/2025 12:19:56 02/27/2002/27/2025 TSH RFX ON ABNOR MAL TO FREE T4 TSH 1.560 uIU/m L 0.450- 4.500 Not Available [facility] ([facility]) [address] [place], [address], 02/27/2025 12:19:56 02/27/2002/27/2025 HEMOG LOBIN A1C hemoglobin A1C 5.7 % 4.8-5. 6 above high normal Predi abete s: 5.7 - 6.4 Diabe rula: >6.4 Glyce linda contr ol for adult s with diabe rula: <7.0 Not Available [facility] ([facility]) [address] [place], [address], 02/27/2025 12:19:57 02/27/20 25 02/27/2025 CBC WITH DIFFE RENTI AL/PL ATELE T WBC 4.9 x10e3 /uL 3.4-10 .8 Not Available [facility] ([facility]) [address] [facility], [place], [address], 02/27/2025 12:19:57 02/27/2002/27/2025 CBC WITH DIFFE RENTI AL/PL ATELE T RBC 4.73 x10e6 /uL 3.77-5 .28 Not Available [facility] ([facility]) [address] [facility], [place], [address], 02/27/2025 12:19:57 02/27/2002/27/2025 CBC WITH DIFFE RENTI AL/PL ATELE T hemoglobin 13.3 g/dL 11.1-1 5.9 Not Available [facility] ([facility]) [address] [facility], [place], [address], 02/27/2025 12:19:57 02/27/2002/27/2025 CBC WITH DIFFE RENTI AL/PL ATELE T hematocrit 41.6 % 34.0-4 6.6 Not Available [facility] ([facility]) [address] [facility], [place], [address], 02/27/2025 12:19:57 02/27/2002/27/2025 CBC WITH DIFFE RENTI AL/PL ATELE T MCV 88 fL 79-97 Not Available [facility] ([facility]) [address] [place], [address], 02/27/2025 12:19:57 02/27/2002/27/2025 CBC WITH DIFFE RENTI AL/PL ATELE T MCH 28.1 pg 26.6-3 3.0 Not Available [facility] ([facility]) [address] [place], [address], 02/27/2025 12:19:57 02/27/2002/27/2025 CBC WITH DIFFE RENTI AL/PL ATELE T MCHC 32.0 g/dL 31.5-3 5.7 Not Available [facility] ([facility]) [address] [facility], [place], [address], 02/27/2025 12:19:57 02/27/2002/27/2025 CBC WITH DIFFE RENTI AL/PL ATELE T RDW 13.2 % 11.7-1 5.4 Not Available [facility] ([facility]) [address] [facility], [place], [address], 02/27/2025 12:19:57 02/27/20 25 02/27/2025 CBC WITH DIFFE RENTI AL/PL ATELE T platelets 298 x10e3 /uL 150-45 0 Not Available [facility] ([facility]) [address] [facility], [place], [address], 02/27/2025 12:19:57 02/27/20 25 02/27/2025 CBC WITH DIFFE RENTI AL/PL ATELE T neutrophils 55 % notest ab. Not Available [facility] ([facility]) [address] [facility], [place], [address], 02/27/2025 12:19:57 02/27/2002/27/2025 CBC WITH DIFFE RENTI AL/PL ATELE T lymphs 35 % notest ab. Not Available [facility] ([facility]) [address] [facility], [place], [address], 02/27/2025 12:19:57 02/27/2002/27/2025 CBC WITH DIFFE RENTI AL/PL ATELE T monocytes 8 % notest ab. Not Available [facility] ([facility]) [address] [facility], [place], [address], 02/27/2025 12:19:57 02/27/20 25 02/27/2025 CBC WITH DIFFE RENTI AL/PL ATELE T eos 1 % notest ab. Not Available [facility] ([facility]) [address] [facility], [place], [address], 02/27/2025 12:19:57 02/27/20 25 02/27/2025 CBC WITH DIFFE RENTI AL/PL ATELE T basos 1 % notest ab. Not Available [facility] ([facility]) [address] [facility], [place], [address], 02/27/2025 12:19:57 02/27/20 25 02/27/2025 CBC WITH DIFFE RENTI AL/PL ATELE T neutrophils (absolute) 2.7 x10e3 /uL 1.4-7. 0 Not Available [facility] ([facility]) [address] [place], [address], 02/27/2025 12:19:57 02/27/20 25 02/27/2025 CBC WITH DIFFE RENTI AL/PL ATELE T lymphs (absolute) 1.7 x10e3 /uL 0.7-3. 1 Not Available [facility] ([facility]) [address] [facility], [place], [address], 02/27/2025 12:19:57 02/27/20 25 02/27/2025 CBC WITH DIFFE RENTI AL/PL ATELE T monocytes(ab solute) 0.4 x10e3 /uL 0.1-0. 9 Not Available [facility] ([facility]) [address] [place], [address], 02/27/2025 12:19:57 02/27/20 25 02/27/2025 CBC WITH DIFFE RENTI AL/PL ATELE T eos (absolute) 0.1 x10e3 /uL 0.0-0. 4 Not Available [facility] ([facility]) [address] [place], [address], 02/27/2025 12:19:57 02/27/20 25 02/27/2025 CBC WITH DIFFE RENTI AL/PL ATELE T baso (absolute) 0.0 x10e3 /uL 0.0-0. 2 Not Available [facility] ([facility]) [address] [facility], [place], [address], 02/27/2025 12:19:57 02/27/20 25 02/27/2025 CBC WITH DIFFE RENTI AL/PL ATELE T immature granulocytes 0 % notest ab. Not Available [facility] ([facility]) [address] [facility], [place], [address], 02/27/2025 12:19:57 02/27/20 25 02/27/2025 CBC WITH DIFFE RENTI AL/PL ATELE T immature grans (abs) 0.0 x10e3 /uL 0.0-0. 1 Not Available [facility] ([facility]) [address] [facility], [place], [address], 02/27/2025 12:19:57 06/01/19 22 mg scree kim W naomi pilar digi [facility] [address] [facility] [place] [address] This is a summar y report . The comple te report is availa ble in the [facility]'s medica l record . If you cannot access the medica l record , please contac t the sendin g organi zakurtis for a detail ed fax or copy. IMAGIN G STUDIE S: MG SCREEN ING W NAOMI PILAR DIGI DATE: 8:54 AM HISTOR Y: screen ing 55-yea r-old female for screen ing study. Histor y of benign left breast biopsy in 2004. Mother with breast cancer at 75 years old. COMPAR NIKKI: Screen ing mammog oumou 021, 2018, and 2017. DISCUS MEDINA: Bilate ral digita l screen ing mammog daniel with CAD. Standa rd mammog raphic views. 2-D imagin g and 3-D tomogr aphy. Scatte red fibrog landul ar tissue . Benign calcif icatio ns. No mammog raphic ally suspic ious mass, microc alcifi cation , or leah ectura l distor tion. No abnorm ality marked by CAD. IMPRES MEDINA: 1. No mammog raphic eviden ce of malign glenna. Recomm end annual mammog daniel. 2. BI-RAD S Catego ry 2 - benign findin gs. 3. TISSUE TYPE: Catego ry B - There are areas of scatte red fibrog landul ar densit y. MQSA BI-RAD S Catego doris: Catego ry 0 - needs additi onal imagin g evalua tion. Catego ry 1 - negati ve. Catego ry 2 - benign findin gs. Catego ry 3 - probab ly benign findin gs, but short interv al follow -up is recomm ended. Catego ry 4 - suspic ious abnorm ality and biopsy should be consid ered though the lesion may well be benign . Catego ry 5 - highly sugges tive of malign glenna and approp riate action should be taken. A) A negati ve report should not delay a biopsy if a domina nt or clinic ally suspic ious mass is presen t. B) Adenos is and dense breast s may obscur e an underl maxim neopla sm. C) Study interp reted with comput er aided detect ion. Ordere d By: CHETNA PRICE Electr onical ly Signed By: Sandi Escalante on 12:54 PM Interp reted By: Sandi Escalante , 12:50 PM aroth5 [facility] [address] [place], [address], 06/01/2021 14:18:35 06/07/19 23 06/07/2022 MAMMO , scree kim, bilat eral No observ ation record ed. [email or web address] [facility] [address] [facility], [place], [address], 01/27/2023 09:51:07 10/05/19 23 10/04/2022 US, thyro id No observ ation record ed. [facility] [address], [place], [address], 10/04/2022 21:09:51 11/26/19 23 11/24/2022 fine needl e aspir ation , thyro id (PROC ) No observ ation record ed. [facility] [address], [place], [address], 11/26/2022 11:35:45 02/28/20 25 10/03/2024 MAMMO , scree kim, bilat eral No observ ation record ed. [facility] [address], [place], [address], 02/27/2025 14:26:15 Result Notes None recorded. Problems Name Problem SNOMED Code Status Onset Date Resolution Date Notes Provider Name and Address Organization Details Recorded Time Hyperlip idemia 41047134 Completed 201105/25/2017 Location : None;Sev erity: Moderate ;Progres s: Stable;A dded By: Megan Reynolds; Add to Current Problems : YES Chetna varela, [facility] 8 11:32:52 Generali zed anxiety disorder 06835136 Active 2011 Shekhar Anand MD Attn: Accounting ,[address] [place], [address] , [facility] 3 09:53:09 Female urinary stress incontin ence 68196109 Completed 201203/15/2013 Location : None;Sev erity: Moderate ;Progres s: Stable;A dded By: Holly Heath i;Debora dd to Current Problems : NO Not Available [facility] 7 09:37:58 Long-ter m drug therapy Active 2013 Shekhar Anand MD Attn: Accounting ,[address] [place], [address] , [facility] 3 09:53:14 Mixed hyperlip idemia 787345836 Active 2013 Shekhar Anand MD Attn: Accounting ,[address] [place], [address] , [facility] 3 09:53:20 Atopic dermatit is 91181257 Active 2013 Shekhar Anand MD Attn: Accounting ,[address] [place], [address] , [facility] 3 09:53:06 Ganglion of joint 88266135 Completed 201312/06/2013 Location : None;Sev erity: Moderate ;Progres s: Stable;A dded By: Lulu Colon;Ad d to Current Problems : NO Shekhar Anand MD Attn: Accounting ,[address] [place], [address] , [facility] 2 16:30:23 Allergic rhinitis caused by pollen 42203409 Completed 201403/07/2015 Location : None;Sev erity: Moderate ;Progres s: Stable;A dded By: Alma Dubose;Add to Current Problems : NO Shekhar Anand MD Attn: Accounting ,[address] [place], [address] , [facility] 2 16:30:32 Contact dermatit is due to plants, except food Completed 201512/24/2021 Location : None;Sev erity: Moderate ;Progres s: Stable;A dded By: Chetna Price;Add to Current Problems : YES Shekhar Anand MD Attn: Accounting ,[address] [place], [address] , [facility] 2 16:29:34 Menopaus e Completed 201601/27/2023 estimate for start of menopaus e Shekhar Anand MD Attn: Accounting ,[address] [place], [address] , [place] [facility] 3 09:53:31 Prediabe rula 041650825 Active 2018 Shekhar Anand MD Attn: Accounting ,[address] [place], [address] , [facility] 2 16:29:45 Body mass index 25-29 - overweig 317128585 Active 2021 Shekhar Anand MD Attn: Accounting ,[address] [facility], [place], [address] , [facility] 2 16:29:15 Fatigue 26194360 Completed 202101/27/2023 Shekhar Anand MD Attn: Accounting ,[address] [facility], [place], [address] , [facility] 3 09:53:23 Multinod ular goiter 156242190 Active 2022 Shekhar Anand MD Attn: Accounting ,[address] [facility], [place], [address] , [facility] 3 12:00:10 Problem Notes None recorded. Procedures Surgical History Date Name Laterality Status Provider Name and Address Organization Details Recorded Time 5 lumpectomy of left breast completed Ruth Turner MA [facility] 06/13/2018 10:59:54 4 ligation of fallopian tube completed Ruth Turner MA [facility] 06/13/2018 10:59:06 Imaging Results None recorded. Procedure Notes None recorded. Medical Equipment None Reported. Allergies Allergen ID Allergen Name Allergen Category Reaction Reaction Severity Criticality Documentation Date Start Date Code Code System Note Provider Name and Address Organization Details Recorded Time 866721 sulfameth oxazole / trimethop rim medicatio n itching Not available Not available 02/25/20252014 21412 RxNorm Not Available dru - External Data Service - prod 5 17:08:55 20012 Substance with sulfonami de structure and antibacte rial mechanism of action (substanc e) medicatio n hives moderate Not available 04/21/20162011 01948 8003 SNOMED React ion: hives , rash; Sever ity: Moder ate; Comme nt: Aller gy Type: Adver se React ion; Not Available [facility] 7 03:48:51 Medications Name Sig Start Date [...] 6hrs prn cough 05/13 completed RxNor m: 40421 6;All ow Subst ituti on: True Not Available Not Available Not Available Flonase 50 mcg/actuati on nasal spray,suspe nsion 2 spray(s) in each nostril daily 05/10 completed RxNor m: 23444 3;All ow Subst ituti on: True Not Available Not Available Not Available triamcinolo ne acetonide 0.1 % topical cream use twice a day as needed for less than 2 wks 02/03 completed RxNor m: 90241 14;Al low Subst ituti on: True Not [...] Available Not Available Vitals Date Recorded Body weight Oxygen saturation Heart rate Body temperature Body height Body mass index (BMI) Systolic And Diastolic Provider Name and Address Organization Details Last Updated DateTime 1 50298.4 1 g 98 % 75 /min 96.8 [degF] 162.56 cm 25.7 kg/m2 96/66 mm[Hg] Ruth Turner MA [facility] 1 11:17:57 Date Recorded Body height Body mass index (BMI) Body weight Body temperature Oxygen saturation Heart rate Systolic And Diastolic Provider Name and Address Organization Details Last Updated DateTime 2 160.66 cm 26.2 kg/m2 09347.3 6 g 97.2 [degF] 99 % 67 /min 92/62 mm[Hg] Erika Mahmood MA [facility] 2 16:07:51 Date Recorded Body mass index (BMI) Body height Provider Name and Address Organization Details Last Updated DateTime 01/27/2023 26.4 kg/m2 160.66 cm Shekhar Anand MD Attn: Accounting,[address] [place], [address], [facility] 01/27/2023 11:59:12 Date Recorded Body weight Oxygen saturation Heart rate Body temperature Systolic And Diastolic Provider Name and Address Organization Details Last Updated DateTime 3 17552.8 6 g 99 % 65 /min 96.8 [degF] 101/69 mm[Hg] Jannie Vargas MA [facility] 3 11:52:50 Date Recorded Body height Body mass index (BMI) Body weight Body temperature Oxygen saturation Heart rate Systolic And Diastolic Provider Name and Address Organization Details Last Updated DateTime 4 160.02 cm 27.3 kg/m2 25840.2 2 g 97 [degF] 99 % 70 /min 119/78 mm[Hg] Jared Fowler MA [facility] 4 11:44:27 Date Recorded Body height Body mass index (BMI) Body weight Oxygen saturation Heart rate Body temperature Systolic And Diastolic Provider Name and Address Organization Details Last Updated DateTime 5 160.02 cm 26.3 kg/m2 68807.0 7 g 99 % 65 /min 98 [degF] 97/68 mm[Hg] Sharona Lopez MA [place] [facility] 5 11:08:58 Social History Question Answer Notes LastModified by Organizat ion Details LastModified Time Tobacco Smoking Status Never Smoker Ruth Turner MA null, [place] - [facility] 05/25/2017 11:01:14 Do You Have [...] anxious, or unable to sleep at night)? AM55859-2 Information not available 02/26/2025 Family History Relationship [...] Influenza, split virus, quadrivalent, preservative 8 completed Dana [place], [place] [facility] 02/27/2018 09:13:38 Influenza, split virus, quadrivalent, preservative 9 completed Chetna [place] [facility] 06/19/2019 11:00:21 Influenza, split virus, quadrivalent, preservative 0 completed Kaylen Cabrales [place] [facility] 01/22/2020 14:47:44 SARS-COV-2 [...] virus, quadrivalent, PF 7 completed Not Available [facility] 02/26/2025 10:45:22 Influenza, split virus, quadrivalent, PF 1 completed Not Available [facility] 02/26/2025 10:45:22 COVID-19, mRNA, LNP-S, bivalent, PF, 30 mcg/0.3 mL dose 2 completed Not Available [facility] 02/26/2025 10:45:22 Influenza, split virus, quadrivalent, PF 2 completed Not Available [facility] 02/26/2025 10:45:22 Influenza, MDCK, trivalent, PF 4 completed Not Available [facility] 02/26/2025 10:45:22 COVID-19, mRNA, LNP-S, PF, martinez-sucrose, 30 mcg/0.3 mL 4 completed Not Available [facility] 02/26/2025 10:45:22 zoster recombinant 1 completed Not Available [facility] 02/26/2025 10:45:23 Tdap 2 completed Shekhar Anand MD Attn: Accounting,[address] [place], [address], [facility] 12/24/2021 21:29:01 Influenza, split virus, trivalent, preservative 4 completed Not Available [facility] 04/21/2016 06:03:05 Tdap 2 completed Not Available [facility] 04/21/2016 06:03:05 Influenza, split virus, trivalent, PF 5 completed NEVA Maya [place] - [facility] 02/26/2025 12:37:26 Pneumococcal conjugate PCV20, polysaccharide AFQ641 conjugate, adjuvant, PF 5 completed NEVA Maya [place] - [facility] 02/26/2025 12:36:55 Past Encounters Encounter ID Performer Location Encounter Start Date Encounter Closed Date Diagnosis/Indication Diagnosis SNOMED-CT Code Diagnosis ICD10 Code Diagnosis IMO Codes Diagnosis Note [id number] Chetna Price MD [facility] [address] [place] [address] 11/19/2016 11:46:34 11/22/2016 10:59:22 Mixed hyperlipidemia 064779543 E78.2 labs due in 05/2017 [facility] 33585057 M25.511 Menopausal syndrome 1237 87767 N95.9 otc supplement [id number] Chetna Price MD [facility] [address] [place] [address] 05/25/2017 10:47:54 05/25/2017 16:19:07 Mixed hyperlipidemia 577923588 E78.2 Thyroid di sorder screening 644903649 Z13.29 [id number] Chetna Price MD [facility] [address] [place] [address] 06/13/2018 10:46:36 06/14/2018 09:19:42 Mixed hyperlipidemia 101663157 E78.2 Onychomyco sis of toenails 694347152 B35.1 Hyperglycemia 44467172 R 73.9 Fatigue 56492721 R53.83 [id number] Chetna Price MD [facility] [address] [place] [address] 12/13/2018 15:57:48 12/13/2018 17:29:53 Generalized anxiety disorder 03770097 F41.1 Prediabetes 123616030 R7 3.03 Mixed hyperlipidemia 267 576395 E78.2 Onychomyco sis of toenails 632858811 B35.1 [id number] Chetna Price MD [facility] [address] [place] [address] 06/19/2019 10:07:15 06/19/2019 12:22:46 Gynecologic examination 80425129 Z01.419 Mixed hyperlipidemia 267 891158 E78.2 Prediabetes 408990226 R7 3.03 Body mass index 25-29 - overweight 062783451 Z68.25 [id number] Chetna Price MD [facility] [address] [place] [address] 07/07/2020 10:53:06 07/07/2020 12:48:19 Mixed hyperlipidemia 067250707 E78.2 Adult heal th examination 434396880 Z00.00 Administra tion of viral vaccine 25848766 Z23 [id number] Shekhar Anand MD [facility] [address] [place] [address] 12/24/2021 15:50:03 12/24/2021 22:19:33 Adult health examination 600793577 Z00.00 # Health Maintenanc e(>18) Depression screen: Denies feeling depressed or having little pleasure in doing things.(>3 5) Lipid disorders screening: will check lipid panel. On statins, 10-yr ASCVD risk >7.5.(50-7 5) Colorectal cancer screening: up-to-date by patient report; will obtain copy of procedure Female(21- 65) Cervical cancer screening: up-to-date , last pap-smear <3 yrs ago - normal.(50 -74) Breast cancer screening: up-to-date , last mammogram on <2 yrs ago - normal.Judy cuello ng with a [place] [facility]. Previously with Dr. Denny LopesTjt ap: given.Infl uenza vaccine: advised to get vaccine during influenza season Jan-August.(> 65, 19-65 DM/COPD, Ast/CHF) Pneumonia vaccine: N/A.Encour aged 2nd COVID booster. Counseled on healthy diet and physical activity. Mixed hyperlipidemia 267 269229 E78.2 # Hyperlipid emia- Last lipid panel < 1 year ago- ACC/AHA CV risk < 7.5%- Repeat at earliest convenienc e- Continue with current management without changes.- Discussed healthy diet and lifestyle. Prediabetes 283641705 R7 3.03 - check hemoglobin A1c today- continue regular exercise and healthy diet Body mass index 25-29 - overweight 473120811 Z68.25 Healthy adult recommenda tions: Focus on a healthy diet, with exercise as tolerated, targeting 30-60 minutes of exercise daily, at least 5 days per week. Long-term drug therapy 343039892 Z79.899 Check routine labwork for ongoing long-term medication use. Administra tion of diphtheria, pertussis, and tetanus vaccine 049777886 Z23 - provided Tdap today Fatigue 44015078 R53.83 - check thyroid stimulatin g hormone Atopic dermatitis 000673 01 L20.9 - will try low potency topical corticoste roids, emollients for treatment [id number] Shekhar Anand MD [facility] [address] [place] [address] 01/27/2023 11:32:02 01/27/2023 16:32:00 Adult health examination 757078664 Z00.00 # Health Maintenanc e(>18) Depression screen: Denies feeling depressed or having little pleasure in doing things.(>3 5) Lipid disorders screening: will check lipid panel. On statins, 10-yr ASCVD risk >7.5.(50-7 5) Colorectal cancer screening: up-to-date by patient report; will obtain copy of procedureF alexander(21-6 5) Cervical cancer screening: up-to-date , last pap-smear <3 yrs ago - normal.(50 -74) Breast cancer screening: up-to-date , last mammogram on <2 yrs ago - normal.Judy lloyd with a [place] [facility]. Previously with Dr. Llamas inesTdap: up to date.Influ jairon vaccine: advised to get vaccine during influenza season Jan-August.(> 65, 19-65 DM/COPD, Ast/CHF) Pneumonia vaccine: N/A.Encour aged COVID booster.Ac tivity/Exe rciseCouns eled on healthy diet and physical activity. Atopic dermatitis 100333 L20.9 - continue low potency topical corticoste roids, emollients for treatment Mixed hyperlipidemia 267 460366 E78.2 # Hyperlipid emia- Last lipid panel < 1 year ago- ACC/AHA CV risk < 7.5%- Repeat at earliest convenienc e- Continue with current management without changes.- Discussed healthy diet and lifestyle. Prediabetes 910555615 R7 3.03 - check hemoglobin A1c- continue regular exercise and healthy diet Body mass index 25-29 - overweight 525784362 Z68.25 Healthy adult recommenda tions: Focus on a healthy diet, with exercise as tolerated, targeting 30-60 minutes of exercise daily, at least 5 days per week. Long-term drug therapy 648205522 Z79.899 Check routine labwork for ongoing long-term medication use. Generalize d anxiety disorder 18786517 F41.1 - resolved, situationa l Multinodular goiter 2375 57911 E04.2 - negative biopsy, recheck thyroid function Screening for malignant neoplasm of colon 506231482 Z12. Z12.12 [id number] Lita Saravia MD [facility] [address] [place] [address] 02/27/2024 11:20:26 02/27/2024 15:30:49 Generalized anxiety disorder 49594751 F41.1 -pt denies anymore issues with anxiety/de pression since quitting her job and getting a new one.-PHQ-9 stable-Enc ouraged the adoption of healthy lifestyle [...] s with depression . Mixed hyperlipidemia 267 839174 E78.2 -stable on current medicaton. Labs over a year ago so pt to get done this week. Educated to be fasting and only to drink black coffee if needed.Fol low a low fat and low cholestero l diet.Reduc e dietary intake of fat to less than 30% of total calories.L imit total cholestero l to less than 200mg per day.Minimi ze use of trans fatty acids.Incr ease intake of fiber, vegetables , fruits and other whole grainsPart icipate in aerobic exercise (at least 30 minutes 4 days a week).Avoi d tobacco products. Prediabetes 804667894 R7 3.03 -pt was prediabeti c at last appt. Will recheck and treat if needed. Multinodular goiter 2375 55995 E04.2 -US of thyroid showed multiple masses, Pt had a fine needle biopsy 11/24/22- which was normal.-Du e to complaints of constipati on and weight gain thyroid labs to be drawn and will f/u with results. Screening for malignant neoplasm of colon 194051982 Z12.11 - Pt will fill out request of records for colonoscop y that was done at [facility] with Dr. Beasley, pt states it was end of 2022-begin of 2023. She had 1 polyp and was told to follow up in 5 years. Screening for malignant neoplasm of breast 008606565 Z12.39 -Pt had normal mammo in 06/10. Order given for 06/12.-lump ectomy on left breast 20 years ago (family hx of breast cancer in 1st degree relative). [id number] Lita Saravia MD [facility] [address] [place] [address] 02/26/2025 10:43:53 02/26/2025 16:15:05 General examination of patient 604497837 Z00.00 [id number] Discussed healthy lifestyle habits such as diet, exercise and sleep. Generalize d anxiety disorder 15777937 F41.1 -PHQ-9 stable-Enc ouraged the adoption of [...] s with depression . Mixed hyperlipidemia 267 624010 E78.2 Follow a low fat and low [...] days a week).Avoi d tobacco products. Prediabetes 608703710 R7 3.03 - Please work on diet of a good spread of veggies, fruits, lean meats, and whole grains.-Av oid foods high in saturated fats and trans fats.-Also avoid cakes, cookies, and other foods high in sugar.-Try to get at least 20-30 minutes of exercise in a couple of times a week. Screening mammography 168473 Z12.31 [id number] -states she had MAMMO in 2024--will request records Sampling o f cervix for Papanicolaou smear 625339512 Z12.4 001666 -will request pap results from OBGYN Screening for malignant neoplasm of colon 378220827 Z12.11 [id number] 04/15/23-- 5 yr f/u Multinodular goiter 2375 29590 E04.2 934085 -US of thyroid showed multiple masses,Pt had a fine needle biopsy 11/24/22- which was normal.-wi ll repeat with thyroid labs and treat accordingl y Overweight 687316555 E66 .3 heart healthy diet and routine exercise discussed and f/u yearly Chronic constipation 236 392982 K59.09 672806 -Recommend to increase fiber content in diet with more fruits and vegetable. -Drink plenty of water.-Twin e medication as prescribed , if getting worse go to ER.- If no improvemen t in 1-2 weeks, return to clinic for further assessment or follow up with Gastroente rology Requires i nfluenza virus vaccination 169862680 Z23 462493 Requires v accination against Streptococcus pneumoniae 8819567509 Z23 317989 Health Concerns Section Related Observation LastModified by Organization Detai ls LastModified Time None Recorded Concern Status LastModified by Organization Details LastModified Time None Recorded Advance Directives Directive N: Payers Insurance Date Sequence Insurance Name Policy Number Policy Aaron Covered Member ID Aaron Member ID Guarantor Name 02/23/2025 1 [facility] ([facility] [id number] Becka West [id number] Becka West 12/24/2021 1 [facility] [employer] [facility] [employer] (PPO) [id number] Becka West [id number] Becka West Notes Date Note Type Note Provider Name and Address Organization Details Recorded Time 1 text/html Annual GYNReported by PatientROS as noted in the HPI last pap was 06/19/19, is it time for labs she had about 8 oz of a smoothie this morning if she needs to fast [facility] M[facility]arela - [facility] 07/07/2020 11:57:22 2 text/html 12 MONTHFOLLOW-UP VISIT/SUBJECTIVE: Becka is here for routine 12 month follow-up of hyperlipidemia and history of prediabetes as well as atopic dermatitis.Last office visit: 81Nws51Dnkg labwork: 37Giq28 Patient reports consistent use of medications, without side effects or intolerances. Current concerns: Itchy spot to right upper back - longstanding (years), not previously treated Needs renewal of rosuvastatin Notes some fatigue Health maintenance: Due for 2nd COVID booster Due for flu shot Due for Tdap Reports history of colonoscopy with Dr. Skelton in [place] Recently received a call from their office to repeat testing She believes he told her clean colonoscopy and 10 year follow-up No record in our chart Hyperlipidemia Consistent use of lipid-lowering medication(s) No side effects Following a low-cholesterol diet Last lipid panel < 1 year ago PrediabetesNo medications, dietary intervention only Reviewed pertinent PAST medical, surgical, family and social history reviewed, updated as needed below.-Subscription Agent/Nursing note reviewed.- Shekhar Anand MD Attn: Accounting,[address] [place] [address], [phone], [facility] 12/24/2021 21:34:46 3 text/html ROS as noted in the HPI ANNUAL HEALTH MAINTENANCE VISIT/SUBJECTIVE: Becka presents for routine yearly health maintenance visit. Last routine follow-up office visit: [id number] labwork: [id number] (CMP) Patient reports consistent use of medications, without side effects or intolerances. Current concerns:- labs- takes biotin Health maintenance:- Immunizations due: COVID booster, vzv#2, flu- Colorectal cancer screeninJan16 - Nafisa - report? - [place]- Well-woman exam: [facility] [place] - past year- Mammography: [id number]- DEXA: no family history- LDCT: never smoker Alcohol: rarely. Not worried/guilty about drinking habits.No drug use.Diet: regular.Exercise: regularly - walking at least 3 times per weekOccupation: works from home - computer based - independent service coordinatorLives at home with 2 cats.No family history of cardiovascular disease- Father - mesothelioma- Mother - hyperlipidemia, hypertension, diabetes mellitus, breast cancer- Maternal grandmother - stomach/liver cancer Follows with software integrator Hyperlipidemia- Consistent use of lipid-lowering medication(s)- No side effects- Following a low-cholesterol diet- Last lipid panel > 1 year ago Anxiety/Depression- resolved, related to previous job stress Atopic dermatitis- intermittent symptoms, right upper back, uses triamcinolone intermittently PrediabetesNo medications, dietary intervention only -Subscription Agent/Nursing note reviewed.- Shekhar Anand MD Attn: Accounting,[address] [facility], [place], [address], [facility] 01/27/2023 12:38:49 4 text/html HyperlipidemiaReported by PatientHPIFor duration, patient reportschronic. For control, patient reportsusually well controlled. For current therapy, patient reportscurrently taking: (rosuvastatin 10 mg),last cholesterol level: (189),last ldl level: (119),last triglyceride level: (75), andlast hdl level: (56)(results from 02-02-23). Anxiety/DepressionReported by PatientHPIFor quality, patient reportssymptoms improved. For severity, patient reportsdenies suicidal ideations,able to maintain relationships, anddoes not interfere with activities of daily living. For context, patient reportsno major life stressors. For associated symptoms, patient reportsdenies homicidal ideations,no significant weight gain,no significant weight loss,no visual/auditory hallucinations,no delusions,no shortness of breath,mood good,no anxiety,no crying spells,no panic,no isolation,sleeping well,appetite good,energy good,no apathy, andmaintaining functionality.ROS as noted in the HPI pt would like to discuss weight gain Pt is concerned about her slow weight gain. She states that she eats a relatively healthy diet. She does not exercise because she has never needed to. She is also struggling with constipation. Pt denies any flare ups of her anxiety/depression. NHI Chen Attn: Accounting,[address] [facility], [place], [address], [facility] 02/27/2024 12:47:13 5 text/html Becka is here today for an annual visit. She has complaints of ongoing constipation. Otherwsie she is doing great. She is not in acute distress. NHI Chen Attn: Accounting,[address] [facility], [place], [address], [facility] 02/26/2025 11:44:43 OBGyn Episode No OBEpisode recorded.
== END 2025-04-03 15:40 | disposition home or self-care (01) ==
PROVIDERS: PCP Registered Nurse School; Visit Provider Registered Nurse School
DX: E04.2 Nontoxic multinodular goiter (principal)
CPT/HCPCS: 76536